=== PATIENT | male | born 1960 | race Caucasian/White ===

== ENCOUNTER 2021-03-08 20:22 | Inpatient (IN) ==
--- NOTE | 2021-03-08 20:35 | Emergency Department Note ---
Impression & Plan Acidosis, lactic, Acute dehydration, Weakness ED Provider Note NAME: NIKKI CHRISTENSEN AGE: 60 SEX: M : 1960 ARRIVES VIA: Walk-In INFORMANT: Patient, ED PROVIDER(S): Julio César Osborn MD Chief Complaint: Lower lethargy, confusion, weakness HPI: Patient does present from a longterm after recently being discharged from [facility] earlier today for hyponatremia and weakness. The caregiver at bedside states that there is an acute change in the patient within the last week. No reported falls or trauma. Patient reportedly was discharged as they had a need for beds reportedly per the patient's caregiver at bedside. Patient has been listing to the right and the caregivers noticed may be a slight droop of his right eyelid. Patient has had increasing weakness and inability to care for self. No reported cough or vomiting. Patient has had decreased p.o. intake. No reported dysuria or hematuria. Patient reportedly does not take blood thinning medications. Patient does live in a longterm as the patient has Tourette's. ROS: See HPI for pertinent positives and negatives. A total of 10 systems were reviewed and otherwise negative. Past medical history: See below Surgical history: See below Social history: See below Physical Exam: GENERAL: Ill in appearance, emaciated. Wearing a mask. EYE EXAM: Normal conjunctiva. PERRL, no anisocoria and EOM's grossly intact w/o pain. Chest: Pes excavatum noted. NECK: Supple, no nuchal rigidity, no adenopathy, non-tender. No signs of meningismus. LUNGS: Clear to auscultation. Normal chest wall mechanics. HEART: Tachycardic and regular, no MRG. ABDOMEN: Abdomen soft, non-tender, normo-active bowel sounds, no masses, no rebound or guarding. BACK: No CVA TTP. SKIN: Slight abrasion to the right upper extremity. UPPER EXTREMITIES: Upper extremities are grossly normal. LOWER EXTREMITIES: Grossly normal, no edema. NEURO EXAM: Awake and alert does follow basic commands., cranial nerves II-XII grossly intact, normal speech, diffuse weakness of all 4 extremities, denies sensory deficits. Differential diagnoses: Infection, dehydration, metabolic abnormality, hypo/hyperglycemia, electrolyte disturbance, anemia, hypoxia, cardiac sources, i ntracerebral event, toxicologic, neurologic, as well as other pathologies. Course: Patient was seen and evaluated the bedside. Full history physical exam was performed. EKG interpreted by me Sinus tachycardia, rate of 123, normal intervals, no obvious ST changes. Imaging Studies: See Below Cardiac monitoring: An order was placed for continuous cardiac monitoring. The monitor shows a rate of 125 with tachycardic and regular rhythm. MDM: Patient was seen due to concern for weakness. The patient had blood work completed. Patient was started on empiric antibiotics cefepime. Patient had a white count of 11 with normal H&H and platelet count. Kidney function grossly unremarkable. Lactate of 8. The patient does have mild elevations in AST alk phos. Patient troponin is not detectable. Procalcitonin is not elevated. Urinalysis does not show evidence of blood or infection. Covid negative. CT of the head is negative. Chest x-ray is clear. Patient did receive IV fluids and a repeat check of the lactate is 2. Do not believe the patient has ischemic bowel. Nonsurgical abdomen. I did speak to the on-call hospitalist and the patient was admitted to the medicine service. Critical Care: I have personally spent 36 minutes of critical care time in direct management of this patient. This includes bedside care, interpretation of diagnostic studies, and testing, discussion with consultants, patient, and family members, and other require inpatient management activities. This 36 minutes is in excess of all separately billable procedures. Past Med/Surg History Social History Smoking Status: Never smoker Hx Alcohol Use: No marital status: Single Current Living Situation: Personal Care Facility current occupational status: disabled Feels Safe at Home: Yes Dental Care, Regularly: Yes Allergies Allergies Allergy/AdvReac Type Severity Reaction Status Date / Time aspirin Allergy Unknown ON Verified 03/08/21 21:47 [place] [facility] hepatitis B virus vaccine Allergy Unknown ON Verified 03/08/21 21:47 [place] [facility] peanut Allergy Unknown ON Verified 03/08/21 21:47 [place] [facility] peas Allergy Unknown ON Verified 03/08/21 21:47 [place] [facility] strawberry Allergy Unknown ON Verified 03/08/21 21:47 [place] [facility] tree nut Allergy Unknown ON Verified 03/08/21 21:47 [place] [facility] watermelon Allergy Unknown ON Verified 03/08/21 21:47 [facility] MED LIST Home Meds Home Medications Medication Instructions Recorded Confirmed albuterol sulfate 90 mcg/actuation 2 puffs INH Q6H PRN 01/04/19 03/08/21 aerosol inhaler (Ventolin HFA) clotrimazole 1 % topical cream 1 appln TOP BID PRN 01/04/19 03/08/21 (Jock Itch (clotrimazole)) epinephrine 0.3 mg/0.3 mL 0.3 mg IM DIRECTED PRN 01/04/19 03/08/21 injection, auto-injector montelukast 10 mg tablet 10 mg PO QAM 01/04/19 03/08/21 pimozide 2 mg tablet 2 mg PO BID tab 01/04/19 03/08/21 sennosides 8.6 mg tablet (Syl-roxie) 8.6 mg PO QAM 01/04/19 03/08/21 acetaminophen 500 mg tablet 500 mg PO Q4H PRN 03/08/21 03/08/21 aluminum-mag hydroxide-simethicone 10 ml PO PCHS PRN 03/08/21 03/08/21 200 mg-200 mg-20 mg/5 mL oral susp (Antacid) chlorpheniramine-acetaminophen 2 2 tab PO Q4H PRN 03/08/21 03/08/21 mg-325 mg tablet (Coricidin HBP Cold and Flu) dextromethorphan-guaifenesin 10 10 ml PO Q4H PRN 03/08/21 03/08/21 mg-100 mg/5 mL oral syrup ibuprofen 200 mg tablet 200 mg PO Q4H PRN 03/08/21 03/08/21 loperamide 2 mg tablet 2 mg PO DIRECTED PRN MDD 4 03/08/21 03/08/21 TABS/DAY--NO MORE THAN 2 DAY nitrofurantoin macrocrystal 100 mg 100 mg PO QAM 03/08/21 03/08/21 capsule phenol-phenolate sodium mucosal 5 spray PO Q2H PRN 03/08/21 03/08/21 aerosol spray pimozide 1 mg tablet 1 mg PO BID 03/08/21 03/08/21 tamsulosin 0.4 mg capsule 0.4 mg PO HS 03/08/21 03/08/21 venlafaxine 150 mg 150 mg PO QAM 03/08/21 03/08/21 capsule,extended release 24 hr Previous Rx's Medication Instructions Recorded dutasteride 0.5 mg capsule 0.5 mg PO DAILY #90 cap 07/23/20 (Avodart) Results & Data (ED) Vital Signs Vital Signs - 24 hr 03/08/21 20:26 03/08/21 21:08 03/08/21 21:10 Temperature 36.8 C Temperature Source Temporal Artery Scan Pulse Rate 101 H 114 H Respiratory Rate 16 24 Respiratory Effort / Characteristics Non-Labored Blood Pressure 72/47 L 101/62 Blood Pressure Mean 55 75 Blood Pressure Position Sitting Pulse Oximetry 96 97 Oxygen Delivery Method Room Air Room Air Sepsis Recent Fever Within 48 Hours No Sepsis New/Unexplained Change in Mental Status No Sepsis Action Taken by Nursing No Action Required 03/08/21 21:26 03/08/21 22:00 03/08/21 22:30 Temperature Temperature Source Pulse Rate 110 H 108 H Respiratory Rate 20 24 Respiratory Effort / Characteristics Blood Pressure 116/69 111/62 Blood Pressure Mean 84 78 Blood Pressure Position Pulse Oximetry 97 94 93 Oxygen Delivery Method Room Air Sepsis Recent Fever Within 48 Hours Sepsis New/Unexplained Change in Mental Status Sepsis Action Taken by Nursing 03/08/21 23:00 Temperature Temperature Source Pulse Rate 104 H Respiratory Rate 22 Respiratory Effort / Characteristics Blood Pressure 113/67 Blood Pressure Mean 82 Blood Pressure Position Pulse Oximetry 94 Oxygen Delivery Method Sepsis Recent Fever Within 48 Hours Sepsis New/Unexplained Change in Mental Status Sepsis Action Taken by [facility] Medications Current Medication List: was personally reviewed by me Laboratory Data Attestation: I reviewed the patient's lab results. Result diagrams: 03/08/21 20:50 03/08/21 20:50 Lab Results 03/08/21 03/08/21 03/08/21 Range/Units 20:50 20:50 20:50 WBC 11.24 H (4.8-10.8) K/uL RBC 4.89 (4.7-6.1) M/uL Hgb 16.0 (14.0-18.0) g/dL Hct 47.0 (42-52) % MCV 96.1 (80-100) fL MCH 32.7 (25-34) pg MCHC 34.0 (32-36) g/dL RDW Std Deviation 50.9 H (36.4-46.3) fL RDW Coeff of Sujit 14.3 (11.5-14.5) % Plt Count 166 (130-400) K/uL MPV 10.0 (7.4-10.4) fL Immature Gran % (Auto) 0.2 % Neut % (Auto) 75.6 % Lymph % (Auto) 12.5 % [place] % (Auto) 9.9 % Eos % (Auto) 1.6 % Baso % (Auto) 0.2 % Neut # (Auto) 8.50 H (1.4-6.5) K/uL Lymph # (Auto) 1.41 (1.2-3.4) K/uL [place] # (Auto) 1.11 H (0.11-0.59) K/uL Eos # (Auto) 0.18 (0-0.5) K/uL Baso # (Auto) 0.02 (0-0.2) K/uL Immature Gran # (Auto) 0.02 (0.00-0.02) K/uL PT 11.6 (9.0-12.0) Seconds INR 1.2 H (0.9-1.1) APTT 25.6 (21.0-31.0) Seconds PTT Ratio 1.0 Sodium 141 (136-145) mmol/L Potassium 3.9 (3.5-5.1) mmol/L Chloride 107 (98-107) mmol/L Carbon Dioxide 22 (21-32) mmol/L Anion Gap 12.0 H (3-11) BUN 15 (7-18) mg/dl Creatinine 1.40 (0.6-1.4) mg/dl Est Cr Clr Drug Dosing 39.9 ml/min Est GFR ( Amer) 63.3 ml/min Est GFR (Non-Af Amer) 54.6 ml/min BUN/Creatinine Ratio 10.8 (10-20) Glucose 120 H (70-99) mg/dl POC Glucose (70-99) mg/dl Lactate (0.4-2.0) mmol/L Calcium 8.8 (8.5-10.1) mg/dl Magnesium 2.3 (1.8-2.4) mg/dl Total Bilirubin 1.3 H (0.2-1) mg/dl AST 73 H (15-37) U/L ALT 76 (12-78) U/L Alkaline Phosphatase 163 H (45-117) U/L Total Creatine Kinase 144 (39-308) U/L Troponin I < 0.015 (0-0.045) ng/ml Total Protein 7.4 (6.4-8.2) gm/dl Albumin 2.4 L (3.4-5.0) gm/dl Globulin 5.0 H (2.5-4.0) gm/dl Albumin/Globulin Ratio 0.5 L (0.9-2) Procalcitonin (0-0.5) ng/ml TSH 4.190 (0.300-4.500) uIu/ml Urine Color Urine Appearance (Clear) Urine pH (4.5-7.5) Ur Specific [place] (1.000-1.030) Urine Protein (Negative) Urine Glucose (UA) (Negative) Urine Ketones (Negative) Urine Blood (Negative) Urine Nitrite (Negative) Urine Bilirubin (Negative) Urine Urobilinogen (Negative) Ur Leukocyte Esterase (Negative) COVID-19 Eval Order SARS-CoV-2 (PCR) (Negative) 03/08/21 03/08/21 03/08/21 Range/Units 20:50 20:50 20:50 WBC (4.8-10.8) K/uL RBC (4.7-6.1) M/uL Hgb (14.0-18.0) g/dL Hct (42-52) % MCV (80-100) fL MCH (25-34) pg MCHC (32-36) g/dL RDW Std Deviation (36.4-46.3) fL RDW Coeff of Sujit (11.5-14.5) % Plt Count (130-400) K/uL MPV (7.4-10.4) fL Immature Gran % (Auto) % Neut % (Auto) % Lymph % (Auto) % [place] % (Auto) % Eos % (Auto) % Baso % (Auto) % Neut # (Auto) (1.4-6.5) K/uL Lymph # (Auto) (1.2-3.4) K/uL [place] # (Auto) (0.11-0.59) K/uL Eos # (Auto) (0-0.5) K/uL Baso # (Auto) (0-0.2) K/uL Immature Gran # (Auto) (0.00-0.02) K/uL PT (9.0-12.0) Seconds INR (0.9-1.1) APTT (21.0-31.0) Seconds PTT Ratio Sodium (136-145) mmol/L Potassium (3.5-5.1) mmol/L Chloride (98-107) mmol/L Carbon Dioxide (21-32) mmol/L Anion Gap (3-11) BUN (7-18) mg/dl Creatinine (0.6-1.4) mg/dl Est Cr Clr Drug Dosing ml/min Est GFR ( Amer) ml/min Est GFR (Non-Af Amer) ml/min BUN/Creatinine Ratio (10-20) Glucose (70-99) mg/dl POC Glucose (70-99) mg/dl Lactate 8.1 H* (0.4-2.0) mmol/L Calcium (8.5-10.1) mg/dl Magnesium (1.8-2.4) mg/dl Total Bilirubin (0.2-1) mg/dl AST (15-37) U/L ALT (12-78) U/L Alkaline Phosphatase (45-117) U/L Total Creatine Kinase (39-308) U/L Troponin I (0-0.045) ng/ml Total Protein (6.4-8.2) gm/dl Albumin (3.4-5.0) gm/dl Globulin (2.5-4.0) gm/dl Albumin/Globulin Ratio (0.9-2) Procalcitonin 0.36 (0-0.5) ng/ml TSH (0.300-4.500) uIu/ml Urine Color Urine Appearance (Clear) Urine pH (4.5-7.5) Ur Specific [place] (1.000-1.030) Urine Protein (Negative) Urine Glucose (UA) (Negative) Urine Ketones (Negative) Urine Blood (Negative) Urine Nitrite (Negative) Urine Bilirubin (Negative) Urine Urobilinogen (Negative) Ur Leukocyte Esterase (Negative) COVID-19 Eval Order Covid19 at [facility] SARS-CoV-2 (PCR) (Negative) 03/08/21 03/08/21 03/08/21 Range/Units 20:50 21:12 21:20 WBC (4.8-10.8) K/uL RBC (4.7-6.1) M/uL Hgb (14.0-18.0) g/dL Hct (42-52) % MCV (80-100) fL MCH (25-34) pg MCHC (32-36) g/dL RDW Std Deviation (36.4-46.3) fL RDW Coeff of Sujit (11.5-14.5) % Plt Count (130-400) K/uL MPV (7.4-10.4) fL Immature Gran % (Auto) % Neut % (Auto) % Lymph % (Auto) % [place] % (Auto) % Eos % (Auto) % Baso % (Auto) % Neut # (Auto) (1.4-6.5) K/uL Lymph # (Auto) (1.2-3.4) K/uL [place] # (Auto) (0.11-0.59) K/uL Eos # (Auto) (0-0.5) K/uL Baso # (Auto) (0-0.2) K/uL Immature Gran # (Auto) (0.00-0.02) K/uL PT (9.0-12.0) Seconds INR (0.9-1.1) APTT (21.0-31.0) Seconds PTT Ratio Sodium (136-145) mmol/L Potassium (3.5-5.1) mmol/L Chloride (98-107) mmol/L Carbon Dioxide (21-32) mmol/L Anion Gap (3-11) BUN (7-18) mg/dl Creatinine (0.6-1.4) mg/dl Est Cr Clr Drug Dosing ml/min Est GFR ( Amer) ml/min Est GFR (Non-Af Amer) ml/min BUN/Creatinine Ratio (10-20) Glucose (70-99) mg/dl POC Glucose 118 H (70-99) mg/dl Lactate (0.4-2.0) mmol/L Calcium (8.5-10.1) mg/dl Magnesium (1.8-2.4) mg/dl Total Bilirubin (0.2-1) mg/dl AST (15-37) U/L ALT (12-78) U/L Alkaline Phosphatase (45-117) U/L Total Creatine Kinase (39-308) U/L Troponin I (0-0.045) ng/ml Total Protein (6.4-8.2) gm/dl Albumin (3.4-5.0) gm/dl Globulin (2.5-4.0) gm/dl Albumin/Globulin Ratio (0.9-2) Procalcitonin (0-0.5) ng/ml TSH (0.300-4.500) uIu/ml Urine Color [place] Urine Appearance Clear (Clear) Urine pH 7.0 (4.5-7.5) Ur Specific [place] 1.009 (1.000-1.030) Urine Protein Negative (Negative) Urine Glucose (UA) Negative (Negative) Urine Ketones Negative (Negative) Urine Blood Negative (Negative) Urine Nitrite Negative (Negative) Urine Bilirubin Negative (Negative) Urine Urobilinogen Negative (Negative) Ur Leukocyte Esterase Negative (Negative) COVID-19 Eval Order SARS-CoV-2 (PCR) NEGATIVE (Negative) 03/08/21 Range/Units 23:03 WBC (4.8-10.8) K/uL RBC (4.7-6.1) M/uL Hgb (14.0-18.0) g/dL Hct (42-52) % MCV (80-100) fL MCH (25-34) pg MCHC (32-36) g/dL RDW Std Deviation (36.4-46.3) fL RDW Coeff of Sujit (11.5-14.5) % Plt Count (130-400) K/uL MPV (7.4-10.4) fL Immature Gran % (Auto) % Neut % (Auto) % Lymph % (Auto) % [place] % (Auto) % Eos % (Auto) % Baso % (Auto) % Neut # (Auto) (1.4-6.5) K/uL Lymph # (Auto) (1.2-3.4) K/uL [place] # (Auto) (0.11-0.59) K/uL Eos # (Auto) (0-0.5) K/uL Baso # (Auto) (0-0.2) K/uL Immature Gran # (Auto) (0.00-0.02) K/uL PT (9.0-12.0) Seconds INR (0.9-1.1) APTT (21.0-31.0) Seconds PTT Ratio Sodium (136-145) mmol/L Potassium (3.5-5.1) mmol/L Chloride (98-107) mmol/L Carbon Dioxide (21-32) mmol/L Anion Gap (3-11) BUN (7-18) mg/dl Creatinine (0.6-1.4) mg/dl Est Cr Clr Drug Dosing ml/min Est GFR ( Amer) ml/min Est GFR (Non-Af Amer) ml/min BUN/Creatinine Ratio (10-20) Glucose (70-99) mg/dl POC Glucose (70-99) mg/dl Lactate 2.2 H* (0.4-2.0) mmol/L Calcium (8.5-10.1) mg/dl Magnesium (1.8-2.4) mg/dl Total Bilirubin (0.2-1) mg/dl AST (15-37) U/L ALT (12-78) U/L Alkaline Phosphatase (45-117) U/L Total Creatine Kinase (39-308) U/L Troponin I (0-0.045) ng/ml Total Protein (6.4-8.2) gm/dl Albumin (3.4-5.0) gm/dl Globulin (2.5-4.0) gm/dl Albumin/Globulin Ratio (0.9-2) Procalcitonin (0-0.5) ng/ml TSH (0.300-4.500) uIu/ml Urine Color Urine Appearance (Clear) Urine pH (4.5-7.5) Ur Specific [place] (1.000-1.030) Urine Protein (Negative) Urine Glucose (UA) (Negative) Urine Ketones (Negative) Urine Blood (Negative) Urine Nitrite (Negative) Urine Bilirubin (Negative) Urine Urobilinogen (Negative) Ur Leukocyte Esterase (Negative) COVID-19 Eval Order SARS-CoV-2 (PCR) (Negative) Administered Medications Lactated Ringer's (Lr) 1,000 mls @ 125 mls/hr IV .Q8H TRACE Stop: 03/10/21 01:00 Last Admin: 03/09/21 01:12 Dose: 125 mls/hr Documented by: [id number] Miscellaneous (Avodart~Order Awaiting Action) 1 ea N/A QS TRACE Stop: 04/08/21 01:04 Last Admin: 03/09/21 01:12 Dose: Not Given Documented by: [id number] Miscellaneous (Pimozide~Order Awaiting Action) 1 ea N/A QS TRACE Stop: 04/08/21 01:04 Last Admin: 03/09/21 01:13 Dose: Not Given Documented by: [id number] Miscellaneous (Pimozide~Order Awaiting Action) 1 ea N/A QS TRACE Stop: 04/08/21 01:04 Last Admin: 03/09/21 01:13 Dose: Not Given Documented by: [id number] Discontinued Medications Sodium Chloride (Nss 1000ml) 1,000 mls @ 999 mls/hr IV .Q1H1M TRACE Stop: 03/08/21 21:43 Last Infusion: 03/08/21 22:08 Dose: 0 mls/hr Documented by: [id number] Admin: 03/08/21 21:07 Dose: 999 mls/hr Documented by: [id number] Sodium Chloride (Nss 1000ml) 1,000 mls @ 999 mls/hr IV .Q1H1M TRACE Stop: 03/08/21 22:45 Last Infusion: 03/08/21 22:16 Dose: 0 mls/hr Documented by: [id number] Admin: 03/08/21 21:15 Dose: 999 mls/hr Documented by: [id number] Cefepime HCl (Maxipime) 2,000 mg in 20 mls @ 5 mls/min IV NOW STA; Protocol Stop: 03/08/21 20:45 Last Admin: 03/08/21 21:24 Dose: 5 mls/min Documented by: [id number] Imaging Data Radiologist's Impression: Chest X-Ray 03/08/21 20:42 SINGLE VIEW CHEST CLINICAL HISTORY: Sepsis. FINDINGS: An AP, portable, upright chest radiograph is obtained. No prior studies are available for comparison at the time of dictation. The examination is degraded by portable technique and patient rotation. The heart is top normal for projection. The pulmonary vasculature is noncongested. There is bibasilar scarring/atelectasis. No airspace consolidation or large pleural effusion is identified. No pneumothorax is seen. The bony thorax is grossly intact. Mild scoliosis is noted in the thoracic spine. IMPRESSION: No acute cardiopulmonary abnormality. ACT 112: Negative or not required by law. Electronically signed by: Frank Rodas M.D. 03/08/2021 10:[address] 03/08/21 21:02 CT SCAN OF THE BRAIN WITHOUT IV CONTRAST CLINICAL HISTORY: Change in mental status. Generalized weakness. COMPARISON STUDY: No priors. TECHNIQUE: Unenhanced axial CT scan of the brain is performed from the vertex to the skull base. A dose lowering technique was utilized adhering to the principles of ALARA. The examination is modestly degraded by motion artifact. CT DOSE: 884.08 mGy.cm FINDINGS: Brain parenchyma: There is mild involutional change. There is no hemorrhage, mass effect, or evidence of acute territorial ischemia by CT criteria. Pereyra- white matter differentiation is preserved. No extra-axial fluid collection is seen. Ventricles, sulci, cisterns: Normal in configuration. Intracranial vasculature: There is mild atherosclerotic calcification of the ca vernous carotid arteries. Calvarium: Unremarkable. Sinuses and mastoids: The visualized paranasal sinuses are clear. The mastoid air cells are well pneumatized. Orbits: The bony orbits are grossly intact. IMPRESSION: There is no hemorrhage, mass effect, or evidence of acute territo rial ischemia by CT criteria. ACT 112: Negative or not required by law. Electronically signed by: Frank Roads M.D. 03/08/2021 9:39 PM Discharge Plan Visit Data Chief Complaint: Altered Mental Status Stated Complaint: altered mental status, leg pain ED Provider: Julio César Osborn Discharge Problem: Acidosis, lactic, Acute dehydration, Weakness Patient Disposition: Admitted As Inpatient Discharge Instructions Interventions: ED Discharge Assessment Last Done: 03/09/21 00:36
[2021-03-08] MEDS ORDERED: CEFEPIME 2,000 MG/20 ML VIAL IV STA (20:42)
[2021-03-08] MEDS ORDERED: SODIUM CHLORIDE 0.9% 1000ML 1,000 ML IV SCH ×2 (20:45→21:45)
[2021-03-08 21:05] LABS: Basophils # (auto) 0.02 K/uL (0-0.2); Basophils % (auto) 0.2 %; Eosinophils # (auto) 0.18 K/uL (0-0.5); Eosinophils % (auto) 1.6 %; Immature Granulocytes # (auto) 0.02 K/uL (0.00-0.02); Immature Granulocytes % (auto) 0.2 %; Lymphocytes # (auto) 1.41 K/uL (1.2-3.4); Lymphocytes % (auto) 12.5 %; Mean Corpuscular Hemoglobin 32.7 pg (25-34); Mean Corpuscular Volume 96.1 fL (80-100); Monocytes # (auto) 1.11 K/uL (0.11-0.59); Monocytes % (auto) 9.9 %; Neutrophils % (auto) 75.6 %; Platelet Count 166 K/uL (130-400); RDW Coefficient of Variation 14.3 % (11.5-14.5); RDW Standard Deviation 50.9 fL (36.4-46.3); Red Blood Count 4.89 M/uL (4.7-6.1); White Blood Count 11.24 K/uL (4.8-10.8)
[2021-03-08 21:16] LABS: INR 1.2 (0.9-1.1); Partial Thromboplastin Time 25.6 Seconds (21.0-31.0); Prothrombin Time 11.6 Seconds (9.0-12.0)
[2021-03-08 21:27] LABS: Appearance Urine Clear (Clear); Bilirubin Urine Negative (Negative); Blood Urine Negative (Negative); Color Urine Orange; Glucose Urine UA Negative (Negative); Ketones Urine Negative (Negative); Leukocyte Esterase Urine Negative (Negative); Nitrite Urine Negative (Negative); Protein Urine Negative (Negative); Specific Gravity Urine 1.009 (1.000-1.030); Urobilinogen Urine Negative (Negative)
[2021-03-08 21:33] LABS: Alanine Aminotransferase 76 U/L (12-78); Albumin Level 2.4 gm/dl (3.4-5.0); Aspartate Aminotransferase 73 U/L (15-37); BUN Creatinine Ratio 10.8 (10-20); Blood Urea Nitrogen 15 mg/dl (7-18); Calcium 8.8 mg/dl (8.5-10.1); Carbon Dioxide 22 mmol/L (21-32); Chloride 107 mmol/L (98-107); Creatinine Clr Calc Pharmacy 39.9 ml/min; Est GFR (African American) 63.3 ml/min; Est GFR (Non-African American) 54.6 ml/min; Glucose 120 mg/dl (70-99); Magnesium 2.3 mg/dl (1.8-2.4); Potassium 3.9 mmol/L (3.5-5.1); Sodium 141 mmol/L (136-145)
[2021-03-08 21:38] LABS: Albumin Globulin Ratio 0.5 (0.9-2); Alkaline Phosphatase 163 U/L (45-117); Bilirubin,Total 1.3 mg/dl (0.2-1); Total Protein 7.4 gm/dl (6.4-8.2); Troponin I < 0.015 ng/ml (0-0.045)
--- NOTE | 2021-03-08 21:41 | CT Scan Report ---
CT SCAN OF THE BRAIN WITHOUT IV CONTRAST CLINICAL HISTORY: Change in mental status. Generalized weakness. COMPARISON STUDY: No priors. TECHNIQUE: Unenhanced axial CT scan of the brain is performed from the vertex to the skull base. A d ose lowering technique was utilized adhering to the principles of ALARA. The examination is modestly degraded by motion artifact. CT DOSE: 884.08 mGy.cm FINDINGS: Brain parenchyma: There is mild involutional change. There is no hemorrhage, mass effect, or evidence of acute territorial ischemia by CT criteria. Pereyra-white matter differentiation is preserved. No ext ra-axial fluid collection is seen. Ventricles, sulci, cisterns: Normal in configuration. Intracranial vasculature: There is mild atherosclerotic calcification of the cavernous carotid arteri es. Calvarium: Unremarkable. Sinuses and mastoids: The visualized paranasal sinuses are clear. The mastoid air cells are well pneu matized. Orbits: The bony orbits are grossly intact. IMPRESSION: There is no hemorrhage, mass effect, or evidence of acute territorial ischemia by CT phani jeronimo. ACT 112: Negative or not required by law. Electronically signed by: Frank Rodas M.D. 03/08/2021 9:39 PM
--- NOTE | 2021-03-08 22:45 | XRay Report ---
SINGLE VIEW CHEST CLINICAL HISTORY: Sepsis. FINDINGS: An AP, portable, upright chest radiograph is obtained. No prior studies are available for c omparison at the time of dictation. The examination is degraded by portable technique and patient rot ation. The heart is top normal for projection. The pulmonary vasculature is noncongested. There is b ibasilar scarring/atelectasis. No airspace consolidation or large pleural effusion is identified. No pneumothorax is seen. The bony thorax is grossly intact. Mild scoliosis is noted in the thoracic spin e. IMPRESSION: No acute cardiopulmonary abnormality. ACT 112: Negative or not required by law. Electronically signed by: Frank Rodas M.D. 03/08/2021 10:43 PM
--- NOTE | 2021-03-08 23:27 | History & Physical Report ---
Date of Service March 08, 2021 Assessment & Plan (1) Acidosis, lactic: Plan: Elevated lactate on arrival of 8.1 which improved with IVF. Repeat 2.2. Possibly secondary to dehydration, patient hypotensive on arrival which has resolved with IVF x 2L -Continue IVF, LR at 125mL/hr x 3 liters -Follow cultures sent by ER. No obvious source of infection at this time. UA is unremarkable. Skin intact. CXR with no infiltrates -Encourage PO intake -Consider dietary consultation (2) Acute dehydration: Plan: As above. IVF and electrolyte repletion -Encourage PO intake -Assistance with meals as needed (3) Weakness: Plan: Patient appear to have generalized weakness. No focal findings on my exam, although limited secondary to poor patient participation. -Treatment of dehydration as above -Consider MRI brain - staff notes that he had a slight right eyelid droop (4) Abnormal LFTs: Plan: Patient with mild obstructive pattern on LFTs with QJ=043 and Tbili=1.3. No RUQ tenderness -Check RUQ US -Repeat LFTs in AM (5) Tourettes syndrome: Plan: Chronic -Continue Pimozide (6) Debility: Plan: Patient requires assistance with ADLs -Fall precautions -Aspiration precautions -Turn q 2 horus -Oral hygiene q shift -PT/OT evaluation Plan: F/E/N - LR at 125mL/hr, electrolytes WNL, Jj=323, Regular diet, pureed with nectar thick liquids and aspiration precautions Ppx - Lovenox 30 Code - Full per discussion with [facility] Dis[facility] - Admit to medical History of Present Illness Chief Complaint: weakness, failure to thrive Primary Care Provider: Jared Tripp is a 60yo male presenting from his usp with dehydration and failure to thrive. History obtained through chart review, discussion with ER staff and caregiver at bedside. Patient has been deteriorating over the last several weeks. He has not been eating or drinking much. He has become more weak, requires 2-4 person assist to get him out of bed. Seen recently admitted to [facility] for hypernatremia as well as dehydration and weakness. Treated with IVF and sent home. Caregiver reports patient has been leaning to the right, possibly had a right eye droop Is largely non-communicative but is able to answer "yes" or "no" Has an occasional cough at night otherwise no report of fever, chills, malaise, chest pain, palpitations, abdominal pain, nausea, vomiting diarrhea or constipation. Received Flu shot and Covid booster appx 2 weeks ago Hypotensive upon arrival with triage BP of 72/47, HR of 108. He was administered IVF x 2 liters with improvement in hemodynamics. BP upon my encounter 111/62 ER Course: Cefepime 2gm, NSS Allergies Allergy/AdvReac Type Severity Reaction Status Date / Time aspirin Allergy Unknown ON Verified 03/08/21 21:47 [place] [facility] hepatitis B virus vaccine Allergy Unknown ON Verified 03/08/21 21:47 [place] [facility] peanut Allergy Unknown ON Verified 03/08/21 21:47 [place] [facility] peas Allergy Unknown ON Verified 03/08/21 21:47 [place] [facility] strawberry Allergy Unknown ON Verified 03/08/21 21:47 [place] [facility] tree nut Allergy Unknown ON Verified 03/08/21 21:47 [place] [facility] watermelon Allergy Unknown ON Verified 03/08/21 21:47 [place] [facility] Home Medications Medication Instructions Recorded Confirmed Type albuterol sulfate 90 mcg/actuation 2 puffs INH Q6H PRN 01/04/19 03/08/21 History aerosol inhaler (Ventolin HFA) clotrimazole 1 % topical cream 1 appln TOP BID PRN 01/04/19 03/08/21 History (Jock Itch (clotrimazole)) epinephrine 0.3 mg/0.3 mL 0.3 mg IM DIRECTED PRN 01/04/19 03/08/21 History injection, auto-injector montelukast 10 mg tablet 10 mg PO QAM 01/04/19 03/08/21 History pimozide 2 mg tablet 2 mg PO BID tab 01/04/19 03/08/21 History sennosides 8.6 mg tablet (Syl-roxie) 8.6 mg PO QAM 01/04/19 03/08/21 History dutasteride 0.5 mg capsule 0.5 mg PO DAILY #90 cap 07/23/20 03/08/21 Rx (Avodart) acetaminophen 500 mg tablet 500 mg PO Q4H PRN 03/08/21 03/08/21 History aluminum-mag hydroxide-simethicone 10 ml PO PCHS PRN 03/08/21 03/08/21 History 200 mg-200 mg-20 mg/5 mL oral susp (Antacid) chlorpheniramine-acetaminophen 2 2 tab PO Q4H PRN 03/08/21 03/08/21 History mg-325 mg tablet (Coricidin HBP Cold and Flu) dextromethorphan-guaifenesin 10 10 ml PO Q4H PRN 03/08/21 03/08/21 History mg-100 mg/5 mL oral syrup ibuprofen 200 mg tablet 200 mg PO Q4H PRN 03/08/21 03/08/21 History loperamide 2 mg tablet 2 mg PO DIRECTED PRN MDD 4 03/08/21 03/08/21 History TABS/DAY--NO MORE THAN 2 DAY nitrofurantoin macrocrystal 100 mg 100 mg PO QAM 03/08/21 03/08/21 History capsule phenol-phenolate sodium mucosal 5 spray PO Q2H PRN 03/08/21 03/08/21 History aerosol spray pimozide 1 mg tablet 1 mg PO BID 03/08/21 03/08/21 History tamsulosin 0.4 mg capsule 0.4 mg PO HS 03/08/21 03/08/21 History venlafaxine 150 mg 150 mg PO QAM 03/08/21 03/08/21 History capsule,extended release 24 hr Past Med/Surg History Social History Smoking Status: Never smoker Hx Alcohol Use: No marital status: Single Current Living Situation: Personal Care Facility current occupational status: disabled Feels Safe at Home: Yes Dental Care, Regularly: Yes Review of Systems Review of Systems: Unobtainable due to cognitive status Physical Exam Physical Exam: General: chronically ill appearing male patient, NAD, able to answer yes or no questions and follow some commands Skin: warm, dry, intact, scattered bruising - right shoulder, right forearm HEENT: NC/AT, PERRL, EOMI, anicteric sclera, conjunctiva without injection, external ear normal to inspection and nontender, nares patent, DRY mucus membranes, dentition intact, no oropharyngeal lesions, neck supple, trachea midline, no LAD, no thyromegaly, no JVD Heart: +S1/S2, regular, tachycardic, 3/6 ALFREDO across precordium, no rubs/gallops, pectus carinatum Lungs: equal air entry bilaterally, no rales/rhonchi/wheezes Abd: +BS, soft, NT/ND, no masses/organomegaly/ascites Ext: warm, 2+ pulses in UE/LE bilaterally, no clubbing/cyanosis or edema Neuro: patient opens eyes to name, moves all extremities with generalized weakness, no focal findings Results & Data Results & Data ([facility]) Vital Signs (Past 12 Hours) Vital Signs Temp Pulse Resp BP Pulse Ox 03/08/21 23:00 104 H 22 113/67 94 03/08/21 22:30 108 H 24 111/62 93 03/08/21 22:00 110 H 20 116/69 94 03/08/21 21:26 97 03/08/21 21:10 114 H 24 101/62 97 03/08/21 20:26 36.8 C 101 H 16 72/47 L 96 Laboratory Results Laboratory Results WBC 11.24 K/uL (4.8-10.8) H 03/08/21 20:50 RBC 4.89 M/uL (4.7-6.1) 03/08/21 20:50 Hgb 16.0 g/dL (14.0-18.0) 03/08/21 20:50 Hct 47.0 % (42-52) 03/08/21 20:50 MCV 96.1 fL (80-100) 03/08/21 20:50 MCH 32.7 pg (25-34) 03/08/21 20:50 MCHC 34.0 g/dL (32-36) 03/08/21 20:50 RDW Std Deviation 50.9 fL (36.4-46.3) H 03/08/21 20:50 RDW Coeff of Sujit 14.3 % (11.5-14.5) 03/08/21 20:50 Plt Count 166 K/uL (130-400) 03/08/21 20:50 MPV 10.0 fL (7.4-10.4) 03/08/21 20:50 Immature Gran % (Auto) 0.2 % 03/08/21 20:50 Neut % (Auto) 75.6 % 03/08/21 20:50 Lymph % (Auto) 12.5 % 03/08/21 20:50 [place] % (Auto) 9.9 % 03/08/21 20:50 Eos % (Auto) 1.6 % 03/08/21 20:50 Baso % (Auto) 0.2 % 03/08/21 20:50 Neut # (Auto) 8.50 K/uL (1.4-6.5) H 03/08/21 20:50 Lymph # (Auto) 1.41 K/uL (1.2-3.4) 03/08/21 20:50 [place] # (Auto) 1.11 K/uL (0.11-0.59) H 03/08/21 20:50 Eos # (Auto) 0.18 K/uL (0-0.5) 03/08/21 20:50 Baso # (Auto) 0.02 K/uL (0-0.2) 03/08/21 20:50 Immature Gran # (Auto) 0.02 K/uL (0.00-0.02) 03/08/21 20:50 PT 11.6 Seconds (9.0-12.0) 03/08/21 20:50 INR 1.2 (0.9-1.1) H 03/08/21 20:50 APTT 25.6 Seconds (21.0-31.0) 03/08/21 20:50 PTT Ratio 1.0 03/08/21 20:50 Sodium 141 mmol/L (136-145) 03/08/21 20:50 Potassium 3.9 mmol/L (3.5-5.1) 03/08/21 20:50 Chloride 107 mmol/L (98-107) 03/08/21 20:50 Carbon Dioxide 22 mmol/L (21-32) 03/08/21 20:50 Anion Gap 12.0 (3-11) H 03/08/21 20:50 BUN 15 mg/dl (7-18) 03/08/21 20:50 Creatinine 1.40 mg/dl (0.6-1.4) 03/08/21 20:50 Est Cr Clr Drug Dosing 39.9 ml/min 03/08/21 20:50 Est GFR ( Amer) 63.3 ml/min 03/08/21 20:50 Est GFR (Non-Af Amer) 54.6 ml/min 03/08/21 20:50 BUN/Creatinine Ratio 10.8 (10-20) 03/08/21 20:50 Glucose 120 mg/dl (70-99) H 03/08/21 20:50 POC Glucose 118 mg/dl (70-99) H 03/08/21 21:12 Lactate 2.2 mmol/L (0.4-2.0) H* 03/08/21 23:03 Calcium 8.8 mg/dl (8.5-10.1) 03/08/21 20:50 Magnesium 2.3 mg/dl (1.8-2.4) 03/08/21 20:50 Total Bilirubin 1.3 mg/dl (0.2-1) H 03/08/21 20:50 AST 73 U/L (15-37) H 03/08/21 20:50 ALT 76 U/L (12-78) 03/08/21 20:50 Alkaline Phosphatase 163 U/L (45-117) H 03/08/21 20:50 Total Creatine Kinase 144 U/L (39-308) 03/08/21 20:50 Troponin I < 0.015 ng/ml (0-0.045) 03/08/21 20:50 Total Protein 7.4 gm/dl (6.4-8.2) 03/08/21 20:50 Albumin 2.4 gm/dl (3.4-5.0) L 03/08/21 20:50 Globulin 5.0 gm/dl (2.5-4.0) H 03/08/21 20:50 Albumin/Globulin Ratio 0.5 (0.9-2) L 03/08/21 20:50 Procalcitonin 0.36 ng/ml (0-0.5) 03/08/21 20:50 TSH 4.190 uIu/ml (0.300-4.500) 03/08/21 20:50 Urine Color [place] 03/08/21 21:20 Urine Appearance Clear (Clear) 03/08/21 21:20 Urine pH 7.0 (4.5-7.5) 03/08/21 21:20 Ur Specific Hawks 1.009 (1.000-1.030) 03/08/21 21:20 Urine Protein Negative (Negative) 03/08/21 21:20 Urine Glucose (UA) Negative (Negative) 03/08/21 21:20 Urine Ketones Negative (Negative) 03/08/21 21:20 Urine Blood Negative (Negative) 03/08/21 21:20 Urine Nitrite Negative (Negative) 03/08/21 21:20 Urine Bilirubin Negative (Negative) 03/08/21 21:20 Urine Urobilinogen Negative (Negative) 03/08/21 21:20 Ur Leukocyte Esterase Negative (Negative) 03/08/21 21:20 COVID-19 Eval Order Covid19 at [facility] 03/08/21 20:50 SARS-CoV-2 (PCR) NEGATIVE (Negative) 03/08/21 20:50 Impressions Chest X-Ray 03/08/21 20:42 SINGLE VIEW CHEST CLINICAL HISTORY: Sepsis. FINDINGS: An AP, portable, upright chest radiograph is obtained. No prior studies are available for comparison at the time of dictation. The examination is degraded by portable technique and patient rotation. The heart is top normal for projection. The pulmonary vasculature is noncongested. There is bibasilar scarring/atelectasis. No airspace consolidation or large pleural effusion is identified. No pneumothorax is seen. The bony thorax is grossly intact. Mild scoliosis is noted in the thoracic spine. IMPRESSION: No acute cardiopulmonary abnormality. ACT 112: Negative or not required by law. Electronically signed by: Frank Rodas M.D. 03/08/2021 10:[address] 03/08/21 21:02 CT SCAN OF THE BRAIN WITHOUT IV CONTRAST CLINICAL HISTORY: Change in mental status. Generalized weakness. COMPARISON STUDY: No priors. TECHNIQUE: Unenhanced axial CT scan of the brain is performed from the vertex to the skull base. A dose lowering technique was utilized adhering to the principles of ALARA. The examination is modestly degraded by motion artifact. CT DOSE: 884.08 mGy.cm FINDINGS: Brain parenchyma: There is mild involutional change. There is no hemorrhage, mass effect, or evidence of acute territorial ischemia by CT criteria. Pereyra- white matter differentiation is preserved. No extra-axial fluid collection is seen. Ventricles, sulci, cisterns: Normal in configuration. Intracranial vasculature: There is mild atherosclerotic calcification of the cavernous carotid arteries. Calvarium: Unremarkable. Sinuses and mastoids: The visualized paranasal sinuses are clear. The mastoid air cells are well pneumatized. Orbits: The bony orbits are grossly intact. IMPRESSION: There is no hemorrhage, mass effect, or evidence of acute territorial ischemia by CT criteria. ACT 112: Negative or not required by law. Electronically signed by: Frank Rodas M.D. 03/08/2021 9:39 PM PG Care Time/CCT Total # of Minutes Spent Total Time Spent with Patient: Total time spent is greater than 50% in coordination of care (as documented) at patient's floor/unit and/or counseling patient: Coding Level of Care Code 66704 Initial Inpt Care Lvl 3 Diagnoses Acidosis, lactic E87.2 Acute dehydration E86.0 Weakness R53.1 Abnormal LFTs R94.5 Tourettes syndrome F95.2 Debility R53.81
[2021-03-09] MEDS ORDERED: ONDANSETRON INJ 2 MG/ML 2 ML VIAL IV PRN (01:01)
[2021-03-09] MEDS ORDERED: ALUMINUM/MAGNESIUM SUSP 30 ML UDC PO PRN (01:01)
[2021-03-09] MEDS ORDERED: ACETAMINOPHEN 325 MG TAB PO PRN (01:01)
[2021-03-09] MEDS ORDERED: ALBUTEROL HFA 8 GM INHALER INH PRN (01:01)
[2021-03-09] MEDS: AVODART~ORDER AWAITING ACTION SCH ×4 (01:12→22:05)
[2021-03-09] MEDS: LACTATED RINGER'S 1,000 ML IV SCH ×3 (01:12→17:14)
[2021-03-09 01:34] LABS: Creatine Kinase 144 U/L (39-308)
[2021-03-09 06:30] LABS: Basophils # (auto) 0.01 K/uL (0-0.2); Basophils % (auto) 0.1 %; Eosinophils # (auto) 0.14 K/uL (0-0.5); Eosinophils % (auto) 1.7 %; Hematocrit (blood only) 38.1 % (42-52); Hemoglobin 12.7 g/dL (14.0-18.0); Immature Granulocytes # (auto) 0.01 K/uL (0.00-0.02); Immature Granulocytes % (auto) 0.1 %; Lymphocytes # (auto) 1.32 K/uL (1.2-3.4); Lymphocytes % (auto) 16.5 %; Mean Corpuscular Hemoglobin 31.7 pg (25-34); Mean Corpuscular Hgb Conc 33.3 g/dL (32-36); Mean Platelet Volume 9.9 fL (7.4-10.4); Monocytes # (auto) 0.91 K/uL (0.11-0.59); Monocytes % (auto) 11.3 %; Neutrophils # (auto) 5.63 K/uL (1.4-6.5); Neutrophils % (auto) 70.3 %; Platelet Count 123 K/uL (130-400); RDW Coefficient of Variation 14.3 % (11.5-14.5); RDW Standard Deviation 49.8 fL (36.4-46.3); Red Blood Count 4.01 M/uL (4.7-6.1); White Blood Count 8.02 K/uL (4.8-10.8)
[2021-03-09 07:03] LABS: Albumin Level 1.7 gm/dl (3.4-5.0); BUN Creatinine Ratio 17.8 (10-20); Bilirubin Direct 0.3 mg/dl (0-0.2); Bilirubin,Total 0.9 mg/dl (0.2-1); Calcium 8.1 mg/dl (8.5-10.1); Creatinine Clr Calc Pharmacy 67.4 ml/min; Est GFR (African American) 111.6 ml/min; Est GFR (Non-African American) 96.3 ml/min; Potassium 4.1 mmol/L (3.5-5.1); Total Protein 5.4 gm/dl (6.4-8.2)
[2021-03-09] MEDS ORDERED: FLUARIX QUADRIVALENT 0.5 ML SYR IM ONE (08:00)
--- NOTE | 2021-03-09 08:11 | Ultrasound Report ---
US liver HISTORY: 60 years-old Male Elevated lactate, abnormal LFTs acutely elevated LFTs COMPARISON: None TECHNIQUE: Multiple real-time sonographic images of the abdominal right upper quadrant were obtained assessing grayscale appearance and color flow FINDINGS: Study is limited secondary to patient condition. The visualized pancreas is unremarkable. The liver i s within normal limits measuring up to 13 cm in length. Hepatopedal flow is noted within the portal v ein. The gallbladder demonstrates wall thickening measuring up to 4 mm. No shadowing cholelithiasis o r pericholecystic fluid. Sonographic Ricardo sign was unable to be assessed. Normal common bile duct, 4 mm. The imaged right kidney is unremarkable without hydronephrosis. IMPRESSION: 1. Nonspecific gallbladder wall thickening. No cholelithiasis or pericholecystic fluid identified. 2. No biliary ductal dilation. ACT 112: Negative or not required by law. The above report was generated using voice recognition software. It may contain grammatical, syntax o r spelling errors. Electronically signed by: Pelon Can M.D. 03/09/2021 8:09 AM
[2021-03-09] MEDS: ENOXAPARIN INJ 30 MG/0.3 ML SYR SQ SCH (09:17)
[2021-03-09] MEDS: SENNA 8.6 MG TAB PO SCH (09:18)
[2021-03-09] MEDS: VENLAFAXINE HCL XR 150 MG CAPXR PO SCH (09:18)
--- NOTE | 2021-03-09 09:53 | Electrocardiogram Report ---
Test Reason : Blood Pressure : / mmHG Vent. Rate : 123 BPM Atrial Rate : 123 BPM P-R Int : 130 ms QRS Dur : 082 ms QT Int : 342 ms P-R-T Axes : 054 097 059 degrees QTc Int : 489 ms Poor data quality, interpretation may be adversely affected Sinus tachycardia Left atrial enlargement Rightward axis Borderline ECG No previous ECGs available Confirmed by Neal Freeman [id number]) on 03/09/2021 9:52:40 AM Referred By: REFERRED SELF Confirmed By:Neal Freeman
--- NOTE | 2021-03-09 15:57 | Hospitalist Progress Note ---
Date of Service March 09, 2021 Assessment & Plan (1) Acidosis, lactic: (2) Acute dehydration: (3) Weakness: (4) Tourettes syndrome: (5) Debility: (6) Abnormal LFTs: Plan: Nadeem Tripp is a 60yo male with a PMHx of tourettes and debility presenting from his correction with dehydration and failure to thrive. 1. Acidosis, lactic: Elevated lactate on arrival of 8.1 which improved with IVF. Repeat 2.2. Possibly secondary to dehydration, patient hypotensive on arrival which resolved with IVF x 2L -Continue IVF, LR at 100mL/hr. -Follow cultures sent by ER. No obvious source of infection at this time. UA is unremarkable. Skin intact. CXR with no infiltrates -Encourage PO intake -Consider dietary consultation 2. Acute dehydration: As above. IVF and electrolyte repletion -Encourage PO intake -Assistance with meals as needed 3. Weakness: Patient appear to have generalized weakness at correction. No focal findings today. -Treatment of dehydration as above -CT head showed no hemorrhage or signs of ischemia. -Consider MRI brain - staff notes that he had a slight right eyelid droop 4. Abnormal LFTs: Patient with mild obstructive pattern on LFTs with PW=343 and Tbili=1.3. No RUQ tenderness -Labs resolving: AST 74, ALP 117, Tbili 0.9 -RUQ US: nonspecific gallbladder thickening, no cholelithiasis, no pericholecystic fluid, no duct dilation -Repeat LFTs in AM 5. Tourettes syndrome: Chronic -Continue Pimozide 6. Debility: Patient requires assistance with ADLs -Fall precautions -Aspiration precautions -Turn q2 hours -Oral hygiene q shift -PT/OT evaluation F/E/N - LR at 100mL/hr, regular diet, pureed with nectar thick liquids and aspiration precautions DVT Ppx - Lovenox 30 Code - Full per discussion with [facility] - Monitor, discharge possibly tomorrow or thursday. Admission and Anticipated Discharge Date Admission Date: March 08, 2021 Supervising Physician Co-Signing Physician Notes I also saw the patient with the resident physician and confirmed maciel portions of the history and physical examination. I agree with the impression and plan as noted in the resident documentation. 60-year-old male with mental disabilities presented from a correction with dehydration and failure to thrive. The patient is unable to provide a history to me during my exam but in reviewing the chart looks as if patient has been deteriorating over the past several weeks. He has not been eating or drinking. He has been coming progressively more weak, now required to to 4 person assist t o get out of bed. The patient was admitted to [facility] for hyperatremia, dehydration and weakness; he was treated with IV fluids and returned home. There are no records to review from this hospitalization. Exam 105/67, 77, 18, 36.7, 94% on room air He is in no acute distress. He will answer yes/no questions. He will not elaborate further. HEENT grossly unremarkable. Membranes perhaps slightly dry. Heart regular rate and rhythm Lungs clear to auscultation, though decreased in the bases due to effort. Data WBC 8.02, hemoglobin 12.7, platelet count 123 Sodium 143, potassium 4.1, BUN 15, creatinine 0.83 AST 74, ALT 60, alkaline phosphatase 117. Total protein 5.4, albumin 1.7 Initial lactate 8.1, repeat 2.2 CT of the head was unremarkable. Chest x-ray was unremarkable. Right upper quadrant ultrasound shows nonspecific gallbladder wall thickening. No cholelithiasis. Cholecystic fluid is identified. No biliary ductal dilatation was noted. Blood cultures are pending. Impression and plan Weakness/failure to thrive Protein calorie malnutrition with hypoalbuminemia Lactic acidosis, resolved Dehydration, resolved PT/OT consultations Decrease IV fluids but continue Repeat CBC and CMP in a.m. We will work to obtain records from prior hospitalization in outside facility His low protein and serum albumin are consistent with a chronic decline; hopefully old records will also help better define his chronic debilities. Subjective Laying comfortably in bed. Pleasant and alert but doesn't talk much. No acute complaints. Review of Systems Review of Systems: Unobtainable due to cognitive status Physical Exam Physical Exam: General: chronically ill appearing male patient, able to answer yes or no questions and follow some commands Skin: warm, dry, intact, scattered bruising - right shoulder, right forearm HEENT: NC/AT, PERRL, EOMI, anicteric sclera, conjunctiva without injection, external ear normal to inspection and nontender, nares patent, dry mucus membranes, dentition intact, no oropharyngeal lesions, neck supple, trachea midline, no LAD, no thyromegaly, no JVD Heart: +S1/S2, regular, tachycardic, 3/6 ALFREDO across precordium, no rubs/gallops, pectus carinatum Lungs: equal air entry bilaterally, no rales/rhonchi/wheezes Abd: +BS, soft, NT/ND, no masses/organomegaly/ascites Ext: warm, 2+ pulses in UE/LE bilaterally, no clubbing/cyanosis or edema Neuro: moves all extremities with generalized weakness, no focal findings Results & Data Results & Data ([facility]) Vital Signs (Past 12 Hours) Vital Signs Temp Pulse Resp BP Pulse Ox 03/09/21 07:30 36.7 C 77 18 105/67 94 Resident Activity Tracking Resident Involvement: Resident Care Provided Care Provided: Adult Hospital Medicine
[2021-03-09] MEDS: TAMSULOSIN HCL 0.4 MG CAP PO SCH (20:25)
[2021-03-10] MEDS: AVODART~ORDER AWAITING ACTION SCH ×2 (07:28→14:40)
[2021-03-10] MEDS: SENNA 8.6 MG TAB PO SCH (08:51)
[2021-03-10] MEDS: ENOXAPARIN INJ 30 MG/0.3 ML SYR SQ SCH (08:52)
[2021-03-10] MEDS: VENLAFAXINE HCL XR 150 MG CAPXR PO SCH (08:52)
[2021-03-10 09:12] LABS: Basophils # (auto) 0.01 K/uL (0-0.2); Basophils % (auto) 0.1 %; Eosinophils # (auto) 0.14 K/uL (0-0.5); Eosinophils % (auto) 1.8 %; Hematocrit (blood only) 42.9 % (42-52); Hemoglobin 14.8 g/dL (14.0-18.0); Immature Granulocytes # (auto) 0.01 K/uL (0.00-0.02); Immature Granulocytes % (auto) 0.1 %; Lymphocytes # (auto) 0.95 K/uL (1.2-3.4); Lymphocytes % (auto) 12.5 %; Mean Corpuscular Hemoglobin 32.8 pg (25-34); Mean Corpuscular Hgb Conc 34.5 g/dL (32-36); Mean Corpuscular Volume 95.1 fL (80-100); Mean Platelet Volume 9.9 fL (7.4-10.4); Monocytes # (auto) 0.78 K/uL (0.11-0.59); Monocytes % (auto) 10.3 %; Neutrophils # (auto) 5.69 K/uL (1.4-6.5); Neutrophils % (auto) 75.2 %; Platelet Count 132 K/uL (130-400); RDW Coefficient of Variation 14.2 % (11.5-14.5); RDW Standard Deviation 49.3 fL (36.4-46.3); Red Blood Count 4.51 M/uL (4.7-6.1); White Blood Count 7.58 K/uL (4.8-10.8)
[2021-03-10 09:34] LABS: Albumin Level 2.2 gm/dl (3.4-5.0); BUN Creatinine Ratio 16.4 (10-20); Calcium 8.5 mg/dl (8.5-10.1); Creatinine Clr Calc Pharmacy 67.4 ml/min; Est GFR (African American) 111.6 ml/min; Est GFR (Non-African American) 96.3 ml/min; Potassium 4.4 mmol/L (3.5-5.1)
[2021-03-10 09:38] LABS: Albumin Globulin Ratio 0.5 (0.9-2); Globulin 4.6 gm/dl (2.5-4.0); Total Protein 6.8 gm/dl (6.4-8.2)
--- NOTE | 2021-03-10 15:28 | Hospitalist Progress Note ---
Date of Service March 10, 2021 Assessment & Plan (1) Acidosis, lactic: (2) Acute dehydration: (3) Weakness: (4) Tourettes syndrome: (5) Debility: (6) Abnormal LFTs: Plan: Nadeem Tripp is a 60yo male with a PMHx of tourettes and debility presenting from his shelter with dehydration and failure to thrive. 03/10: After speaking with Quinten, the patient's brother, on the phone today, I gathered some information on his baseline. It seems the patient began experiencing several symptoms as of 1 to 2 months ago. The symptoms included balance issues, being less social, and difficulty swallowing with a muffled voice. Apparently the patient had gotten his difficulty swallowing evaluated in the outpatient setting via his shelter however records have yet to be obtained. I wonder if this difficulty swallowing was fully evaluated as he is transition to eating pured foods over the last month. Due to this he has began losing weight and now looks cachectic. This probably was part of the reason he came in dehydrated and malnourished on admission. He was unable to undergo a PT assessment this morning due to being uncooperative. PT will try again at a later time. We will want to evaluate his gait and see if he truly has problems with his balance which may warrant a brain MRI. Speech did see the patient yesterday however it is unsure whether or not they did a true swallowing assessment. I would like speech to see them again evaluate swallowing so we can determine whether he needs further evaluation. 1. Acidosis, lactic: Elevated lactate on arrival of 8.1 which improved with IVF. Repeat 2.2. Possibly secondary to dehydration, patient hypotensive on arrival which resolved with IVF x 2L -Continued IVF, LR at 100mL/hr, 3 bags completed as of this morning. No more fluids at this time. -Follow cultures sent by ER no growth thus far. No obvious source of infection at this time. UA is unremarkable. Skin intact. CXR with no infiltrates -Encourage PO intake -Consider dietary consultation 2. Acute dehydration: As above. IVF and electrolyte repletion -Encourage PO intake -Assistance with meals as needed 3. Weakness: Patient appear to have generalized weakness at shelter. No focal findings today. -Treatment of dehydration as above -CT head showed no hemorrhage or signs of ischemia. -Consider MRI brain - staff notes that he had a slight right eyelid droop 4. Abnormal LFTs: Patient with mild obstructive pattern on LFTs with SC=249 and Tbili=1.3. No RUQ tenderness -Labs resolving yesterday: AST 74, ALP 117, Tbili 0.9 -RUQ US: nonspecific gallbladder thickening, no cholelithiasis, no perichol ecystic fluid, no duct dilation -Today AST and ALP elevated once again to near admission levels. May be secondary to malnutrition or this fluctuation may be his baseline. We will continue to monitor and trend LFTs. 5. Tourettes syndrome: Chronic -Continue Pimozide 6. Intellectual disability: Patient requires assistance with ADLs -Fall precautions -Aspiration precautions -Turn q2 hours -Oral hygiene q shift -PT/OT evaluation: unable to participate this morning due to being uncooperative, will try again at a later time. F/E/N - no fluids at the moment, pureed with nectar thick liquids and aspiration precautions DVT Ppx - Lovenox 30 Code - Full per discussion with [facility] - Monitor, discharge possibly tomorrow, following with CM. Admission and Anticipated Discharge Date Admission Date: March 08, 2021 Supervising Physician Co-Signing Physician Notes I also saw the patient with the resident physician and confirmed maciel portions of the history and physical examination. I agree with the impression and plan as noted in the resident documentation. 60-year-old male with mental disabilities presented from a shelter with dehydration and failure to thrive. He had not been eating or drinking and progressively more weak. Today he is slightly more talkative, but really minimally above simple yes/no answers. Dr. Dubon was able To collect some collateral information from family today which is consistent with the previously known history, although with the addition of the dysphagia.Given the dysphagia and weight loss, he may need evaluation via EGD. Unfortunately, given his mental status, he really cannot provide much in the way of symptoms to guide our work-up. Exam 113/73, 86, 16, 36.7, 94% on room air He is in no acute distress. He will answer yes/no questions. HEENT grossly unremarkable. Membranes perhaps slightly dry. Heart regular rate and rhythm Lungs clear to auscultation, though decreased in the bases due to effort. Firm palpation of the abdomen without any appreciated tenderness. Data White blood count 7.58, hemoglobin 14.8, platelet count 132 Sodium 140, potassium 4.4, BUN 14, creatinine 0.83 AST elevated at 114, ALT 78, alkaline phosphatase 159 Albumin 2.2 Blood culture showed no growth at [address] of the head was unremarkable. Chest x-ray was unremarkable. Right upper quadrant ultrasound shows nonspecific gallbladder wall thickening. No cholelithiasis. Cholecystic fluid is identified. No biliary ductal dilatation was noted. Impression and plan Weakness/failure to thrive Protein calorie malnutrition with hypoalbuminemia Lactic acidosis, resolved Dehydration, resolved PT/OT consultations Repeat LFTs in a.m. he has a thickened gallbladder, but no other imaging signs of acute cholecystitis. He really cannot relate a history. If LFTs continue to trend up, could consider HIDA. Given dysphagia and weight loss, consider upper endoscopy. Really not able to obtain if he is having true GERD/gastric reflux symptoms. We will work to obtain records from prior hospitalization in outside facility His low protein and serum albumin are consistent with a chronic decline; hopefully old records will also help better define his chronic debilities. Subjective Laying comfortably in bed. Seems to be more talkative than yesterday however still difficult to understand. A lot of yes and no responses to my questions. Unsure if he fully comprehends what I am saying. Review of Systems Review of Systems: Unobtainable due to cognitive status Physical Exam Physical Exam: General: chronically ill appearing male patient, able to answer yes or no questions and follow some commands Skin: warm, dry, intact, scattered bruising - right shoulder, right forearm HEENT: NC/AT, PERRL, EOMI, anicteric sclera, conjunctiva without injection, external ear normal to inspection and nontender, nares patent, dry mucus membranes, dentition intact, no oropharyngeal lesions, neck supple, trachea mid line, no LAD, no thyromegaly, no JVD Heart: +S1/S2, regular, tachycardic, 3/6 ALFREDO across precordium, no rubs/gallops, pectus carinatum Lungs: equal air entry bilaterally, no rales/rhonchi/wheezes Abd: +BS, soft, NT/ND, no masses/organomegaly/ascites Ext: warm, 2+ pulses in UE/LE bilaterally, no clubbing/cyanosis or edema Neuro: moves all extremities with generalized weakness, no focal findings Results & Data Results & Data ([place]) Vital Signs (Past 12 Hours) Vital Signs Temp Pulse Resp BP Pulse Ox 03/10/21 06:37 36.6 C 86 16 118/70 93 Resident Activity Tracking Resident Involvement: Resident Care Provided Care Provided: Adult Hospital Medicine
[2021-03-10] MEDS: TAMSULOSIN HCL 0.4 MG CAP PO SCH (21:40)
[2021-03-11] MEDS: AVODART~ORDER AWAITING ACTION SCH ×4 (01:41→23:00)
--- NOTE | 2021-03-11 08:07 | Hospitalist Progress Note ---
Date of Service March 11, 2021 Assessment & Plan (1) Acute dehydration: Plan: As above. IVF and electrolyte repletion -Encourage PO intake -Assistance with meals as needed (2) Weakness: Plan: Patient appear to have generalized weakness at [facility] [facility]. No focal findings today. -Treatment of dehydration as above -CT head showed no hemorrhage or signs of ischemia. -Ordered barium swallow study for patient to check for any anatomic abnormalities, if negative will consider MRI brain, EGD. Consider GI consult. (3) Acidosis, lactic: Plan: Elevated lactate on arrival of 8.1 which improved with IVF. Repeat 2.2. Possibly secondary to dehydration, patient hypotensive on arrival which resolved with IVF x 2L -Continued IVF, LR at 100mL/hr, 3 bags completed as of this morning. No more fluids at this time. -Follow cultures sent by ER no growth thus far. No obvious source of infection at this time. UA is unremarkable. Skin intact. CXR with no infiltrates -Encourage PO intake -Dietary consulted (4) Tourettes syndrome: Plan: Chronic -Continue Pimozide (5) Debility: Plan: Same plan as weakness, failure to thrive may be due to troubles swallowing or patient not wanting to eat puree/decreased appetite. Will proceed with Barium swallow study. (6) Abnormal LFTs: Plan: Abnormal LFT's: Patient with raised LFT's on admission. Most likely due to dehydration hypovolemia. LFT's trending downward, AST/ALT 98/75. Admission and Anticipated Discharge Date Admission Date: March 08, 2021 Supervising Physician Co-Signing Physician Notes I personally examined the patient and verified all maciel points of history and exam, discussed case, and agree with decision making with Dr Acosta Not much of any meaningful history or review of systems obtainable from patient todayvaguely he seems to admit to feeling okay, mostly asks for more tea. Not really able to glean any meaningful HPI review of systems, unfortunately, does not seem to have pain or shortness of breath. Vitals noted, in general he is fairly cachectic but in no acute distress. HEENT normocephalic atraumatic mucous membranes are moist. Breathing unlabored no accessory muscle use good effort, lungs are clear without rales rhonchi or wheezes, deeply sunken chest, abdomen is soft nondistended nontender no masses organomegaly. Muscle wasting noted. Failure to thrivepresented with dehydration, it sounds like the second time he is been admitted for dehydration and very short order, this time also with a degree of transaminitis, and what appears to be probably severe acute protein calorie malnutrition -Hydrated, tolerating liquid diet -Working on getting to the bottom of the root cause of his failure to thriveawaiting records that have been scanned in the system, and it sounds like he had been seeing [facility], possibly?Will be able to review records if any are present. Otherwise, given that he had a modified diet as one possible clue as to what was going on, we will try to obtain information from his [place] [facility] on why the diet was modified, and will pursue differentials for dysphagia as the center of his failure to thrivestarting with a barium swallow, possible need for EGD if it is anything but perfectly normal, and if the barium swallow is perfectly normal, then pursue central nervous system reasons for dysphagia as an alternate differential. -Dietitian consult, nutritional support, supportive care. Otherwise as above Subjective Patient was seen at bedside today. Difficult to gauge patient comfort level as he gives one word answers and is easily distracted. 03/11 Spoke on phone with Care facility: Spoke on the phone with his nurse, August, from [facility] about the patient's past progression. He went and saw GI Dr. Anibal Rudd ([facility]) for colonoscopy and EGD around late December. Usually the patient would get colonoscopy or sigmoidoscopy every 3-6 months due to family history of colon cancer/polyps. When Dr. Rudd looked inside he found a colonic mass. Scheduled with [facility] for a further look as to what to remove. Patient started having trouble with food, started with ground up, sent to speech pathologist for [facility]. No recent swallow study done, were gonna do one but ended up in hospital. Quinten had him on puree diet on nectar honey, stopped feeding himself, staff had to feed him. Were doing meal then shake then meal then shake to try to increase calories. Lost 20 lbs since December, had PT coming in home to see him. PT able to get stand at side of bed but did not walk. In the hospital Thursday and and got out Thursday. Was at [facility], said he had severe dehydration. Ate once for brother, nurses were feeding him but not sure if anyone got him up and out of bed. Was getting heparin subq in belly at the time as well. Sodium prior to last hospitalization 163, when left 148. When ambulance came to get him couldn't get up to walk. Already starting to lose weight when the mass was found. Ended up keeping him home for a couple of days to see what was going on but declined. Got colonoscopy and sigmoidoscopy every 3-6 months but not when covid happened. Dr. Rudd said they did everything they could do for him. Was getting the has a hemoclip in his belly. December towards beginning of January. Walking around then started complaining of throat hurting, got mds rn involved, speech involved, PT involved and still up walking around and GI made him puree to see if that would help at all. Would take a couple bites and then say he was done. For a while was on boost with ice cream for calories. Was drinking that for a while. When his color shop helper saw him he thought he was in [facility] and wanted to go home Physical Exam Constitutional: WD/WN, vitals as above Patient with cachectic appearance. Eyes: PERRL, conjunctivae normal, anicteric sclerae Respiratory: normal respiratory effort, lungs clear to auscultation Cardiovascular: RRR, no murmur, no edema Gastrointestinal (Abdomen): normal bowel sounds, soft, nontender, no hepatosplenomegaly Psychiatric: Oriented to person, not to place or time. Results & Data Results & Data ([facility]) Vital Signs (Past 12 Hours) Vital Signs Temp Pulse Resp BP Pulse Ox 03/11/21 07:30 36.4 C L 92 H 16 104/65 96 03/10/21 22:31 36.9 C 87 16 125/76 97 Resident Activity Tracking Resident Involvement: Resident Care Provided Care Provided: Adult Hospital Medicine
[2021-03-11 08:44] LABS: Basophils # (auto) 0.02 K/uL (0-0.2); Basophils % (auto) 0.3 %; Eosinophils # (auto) 0.19 K/uL (0-0.5); Eosinophils % (auto) 2.7 %; Hematocrit (blood only) 41.8 % (42-52); Hemoglobin 14.2 g/dL (14.0-18.0); Immature Granulocytes # (auto) 0.02 K/uL (0.00-0.02); Immature Granulocytes % (auto) 0.3 %; Lymphocytes # (auto) 1.58 K/uL (1.2-3.4); Lymphocytes % (auto) 22.3 %; Mean Corpuscular Hemoglobin 32.1 pg (25-34); Mean Corpuscular Volume 94.6 fL (80-100); Neutrophils # (auto) 5.29 K/uL (1.4-6.5); Neutrophils % (auto) 74.4 %; Platelet Count 141 K/uL (130-400); RDW Coefficient of Variation 14.3 % (11.5-14.5); RDW Standard Deviation 49.6 fL (36.4-46.3); Red Blood Count 4.42 M/uL (4.7-6.1)
[2021-03-11] MEDS: VENLAFAXINE HCL XR 150 MG CAPXR PO SCH (08:58)
[2021-03-11] MEDS: SENNA 8.6 MG TAB PO SCH (08:58)
[2021-03-11] MEDS: ENOXAPARIN INJ 30 MG/0.3 ML SYR SQ SCH (09:01)
[2021-03-11 09:04] LABS: Calcium 7.4 mg/dl (8.5-10.1); Creatinine Clr Calc Pharmacy 67.4 ml/min; Est GFR (African American) 111.6 ml/min; Est GFR (Non-African American) 96.3 ml/min; Potassium 4.2 mmol/L (3.5-5.1)
[2021-03-11 09:07] LABS: Albumin Globulin Ratio 0.5 (0.9-2); Bilirubin,Total 0.7 mg/dl (0.2-1); Globulin 4.3 gm/dl (2.5-4.0); Total Protein 6.3 gm/dl (6.4-8.2)
[2021-03-11 10:20] LABS: iSTAT Creatinine 1.1 mg/dl (0.6-1.3); iSTAT Hemoglobin 16.3 g/dl (14.0-18.0); iSTAT Ionized Calcium 1.13 mmol/l (1.12-1.32); iSTAT Potassium 4.1 mmol/L (3.3-5.0)
--- NOTE | 2021-03-11 19:28 | Billing Data ---
Date of Service March 11, 2021 Coding Level of Care Code 31732 Subseq Hosp Care Lvl 3
[2021-03-11] MEDS: TAMSULOSIN HCL 0.4 MG CAP PO SCH (19:59)
[2021-03-12 06:45] LABS: Basophils # (auto) 0.02 K/uL (0-0.2); Basophils % (auto) 0.2 %; Eosinophils % (auto) 2.4 %; Hematocrit (blood only) 43.5 % (42-52); Hemoglobin 14.7 g/dL (14.0-18.0); Immature Granulocytes # (auto) 0.01 K/uL (0.00-0.02); Immature Granulocytes % (auto) 0.1 %; Lymphocytes # (auto) 1.34 K/uL (1.2-3.4); Lymphocytes % (auto) 16.2 %; Mean Corpuscular Hemoglobin 32.5 pg (25-34); Mean Corpuscular Hgb Conc 33.8 g/dL (32-36); Mean Platelet Volume 9.4 fL (7.4-10.4); Monocytes # (auto) 1.15 K/uL (0.11-0.59); Monocytes % (auto) 13.9 %; Neutrophils # (auto) 5.54 K/uL (1.4-6.5); Neutrophils % (auto) 67.2 %; Platelet Count 154 K/uL (130-400); RDW Coefficient of Variation 14.1 % (11.5-14.5); RDW Standard Deviation 49.9 fL (36.4-46.3); Red Blood Count 4.53 M/uL (4.7-6.1); White Blood Count 8.26 K/uL (4.8-10.8)
--- NOTE | 2021-03-12 07:09 | Hospitalist Progress Note ---
Date of Service March 12, 2021 Assessment & Plan (1) Acute dehydration: Plan: As above. IVF and electrolyte repletion -Encourage PO intake -Assistance with meals as needed (2) Weakness: Plan: [facility] No focal findings today. -Treatment of dehydration as above -CT head showed no hemorrhage or signs of ischemia. -Video swallow study showed no abnormalities for upper esophagus. Patient unable to do Barium swallow study since he cannot stand for more than 5 seconds, consulted GI for further workup with possible EGD for dysphagia. -Given history of mass found on colonoscopy and patient's frequency of previous checks (q3-6months) may suspect malignancy with metastasis as cause of failure to thrive. Will try to get records from [facility] from when patient was there to see if he had any imaging of chest and abdomen/pelvis, if not will order CT chest and Abdomen/pelvis. (3) Acidosis, lactic: Plan: Elevated lactate on arrival of 8.1 which improved with IVF. Repeat 2.2. Possibly secondary to dehydration, patient hypotensive on arrival which resolved with IVF x 2L -Continued IVF, LR at 100mL/hr, 3 bags completed as of this morning. No more fluids at this time. -Blood cultures from ED negative for any growth. UA is unremarkable. Skin intact. CXR with no infiltrates -Encourage PO intake -Dietary consulted (4) Tourettes syndrome: Plan: Chronic -Continue Pimozide (5) Debility: Plan: Same plan as weakness, failure to thrive may be due to troubles swallowing or patient not wanting to eat puree/decreased appetite. Will proceed with Barium swallow study. (6) Abnormal LFTs: Plan: Abnormal LFT's: Patient with raised LFT's on admission. Most likely due to dehydration hypovolemia. LFT's trending downward, AST/ALT 98/75. Admission and Anticipated Discharge Date Admission Date: March 08, 2021 Supervising Physician Co-Signing Physician Notes I personally examined the patient and verified all maciel points of history and exam, discussed case, and agree with decision making with Dr Acosta Not much of any meaningful history or review of systems obtainable from patient again todayvaguely he seems to admit to feeling okay, vaguely asks about home. Vitals noted, in general he is fairly cachectic but in no acute distress. HEENT normocephalic atraumatic mucous membranes are moist. Breathing unlabored no accessory muscle use good effort, breathing unlabored no accessory muscle use good effort. Skin shows no rashes no pallor or icterus. Muscle wasting noted Failure to thrivepresented with dehydration, it sounds like the second time he is been admitted for dehydration and very short order, this time also with a degree of transaminitis, and what appears to be probably severe acute protein c alorie malnutrition -Hydrated, tolerating liquid diet and appears he can tolerate a more advanced dietwe will progress -As far as root cause of his failure to thriveright now we are pursuing from 2 different angles1 being a dysphagia mechanism, since it seems like maybe some food intolerance was at culprittry to get a barium swallow, we were asked to get a video fluoroscopy to ensure he was a low aspiration risk, he did this, then whenever we try to get the barium swallow again, we were informed that he would not be able to participate well enough to do it. To that end we will consult GIfor evaluation/consideration of EGD. Also simultaneously working towards a malignancy etiologyparticularly given the colon massasking for records from [facility] as far as his recent hospital stay/any possible references to imaging, as well as his most recent colonoscopy. Low threshold to check CT chest abdomen pelvis (just waiting to make sure it was not just done last week) and work-up further from there. Otherwise as above Subjective Patient was seen at bedside today. Difficult to gauge patient comfort level as he gives one word answers and is easily distracted. 03/11 Spoke on phone with Care facility: Spoke on the phone with his nurse, August, from [facility] about the patient's past progression. He went and saw GI Dr. Anibal Rudd ([facility]) for colonoscopy and EGD around late December. Usually the patient would get colonoscopy or sigmoidoscopy every 3-6 months due to family history of colon cancer/polyps. When Dr. Rudd looked inside he found a colonic mass. Scheduled with [facility] for a further look as to what to remove. Patient started having trouble with food, started with ground up, sent to speech pathologist for [facility]. No recent swallow study done, were gonna do one but ended up in hospital. Quinten had him on puree diet on nectar honey, stopped feeding himself, staff had to feed him. Were doing meal then shake then meal then shake to try to increase calories. Lost 20 lbs since December, had PT coming in home to see him. PT able to get stand at side of bed but did not walk. In the hospital Thursday and and got out Thursday. Was at [facility], said he had severe dehydration. Ate once for brother, nurses were feeding him but not sure if anyone got him up and out of bed. Was getting heparin subq in belly at the time as well. Sodium prior to last hospitalization 163, when left 148. When ambulance came to get him couldn't get up to walk. Already starting to lose weight when the mass was found. Ended up keeping him home for a couple of days to see what was going on but declined. Got colonoscopy and sigmoidoscopy every 3-6 months but not when covid happened. Dr. Rudd said they did everything they could do for him. Was getting the has a hemoclip in his belly. December towards beginning of January. Walking around then started complaining of throat hurting, got solar sales energy advisor involved, speech involved, PT involved and still up walking around and GI made him puree to see if that would help at all. Would take a couple bites and then say he was done. For a while was on boost with ice cream for calories. Was drinking that for a while. When his fiberglass product tester saw him he thought he was in [facility] and wanted to go home Physical Exam Constitutional: WD/WN, vitals as above + cachectic and + malnourished Patient sitting comfortably in bed. Eyes: PERRL, conjunctivae normal, anicteric sclerae Respiratory: normal respiratory effort, lungs clear to auscultation Cardiovascular: RRR, no murmur, no edema Gastrointestinal (Abdomen): normal bowel sounds, soft, nontender, no hepatosplenomegaly Results & Data Results & Data ([facility]) Vital Signs (Past 12 Hours) Vital Signs Temp Pulse Resp BP Pulse Ox 03/11/21 23:14 36.5 C 84 14 109/62 92 Resident Activity Tracking Resident Involvement: Resident Care Provided Care Provided: Adult Hospital Medicine
[2021-03-12 07:13] LABS: Albumin Globulin Ratio 0.5 (0.9-2); Albumin Level 2.1 gm/dl (3.4-5.0); BUN Creatinine Ratio 14.9 (10-20); Bilirubin,Total 0.7 mg/dl (0.2-1); Calcium 8.7 mg/dl (8.5-10.1); Creatinine Clr Calc Pharmacy 71.7 ml/min; Est GFR (African American) 114.5 ml/min; Est GFR (Non-African American) 98.8 ml/min; Globulin 4.3 gm/dl (2.5-4.0); Potassium 4.5 mmol/L (3.5-5.1); Total Protein 6.4 gm/dl (6.4-8.2)
[2021-03-12] MEDS: AVODART~ORDER AWAITING ACTION SCH ×3 (08:08→23:52)
[2021-03-12] MEDS: SENNA 8.6 MG TAB PO SCH (08:09)
[2021-03-12] MEDS: ENOXAPARIN INJ 30 MG/0.3 ML SYR SQ SCH (08:18)
--- NOTE | 2021-03-12 13:50 | Fluoroscopy Report ---
FL video swallow HISTORY: Failure to thrive, dysphagia. TECHNIQUE: Video fluoroscopic evaluation of swallowing was performed in the AP and lateral projection s by the speech pathology staff. The patient is fed thin liquid barium, a barium coated wafer, and ba rium pudding. FLUOROSCOPY TIME: 1.8 minutes. A cine loop submitted. COMPARISON STUDY: None. FINDINGS: There is normal hyoid excursion and epiglottic deflection. Single episode of trace aspirati on with the thin liquid barium. The remaining barium consistencies showed no aspiration. IMPRESSION: 1. Single episode of trace aspiration with the thin liquid barium. 2. Please see the speech pathologist report for detailed findings and recommendations. ACT 112: Negative or not required by law. Electronically signed by: Rafael Cunningham M.D. 03/12/2021 1:49 PM
[2021-03-12] MEDS: VENLAFAXINE HCL XR 150 MG CAPXR PO SCH (16:16)
--- NOTE | 2021-03-12 19:21 | Billing Data ---
Date of Service March 12, 2021 Coding Level of Care Code 91429 Subseq Hosp Care Lvl 3
[2021-03-12] MEDS: TAMSULOSIN HCL 0.4 MG CAP PO SCH (20:12)
--- NOTE | 2021-03-13 06:53 | Hospitalist Progress Note ---
Date of Service March 13, 2021 Assessment & Plan (1) Acute dehydration: Plan: As above. IVF and electrolyte repletion -Encourage PO intake -Assistance with meals as needed (2) Weakness: Plan: Patient appear to have generalized weakness at assisted. No focal findings today. -Treatment of dehydration as above -CT head showed no hemorrhage or signs of ischemia. -Video swallow study showed no abnormalities for upper esophagus. Patient unable to do Barium swallow study since he cannot stand for more than 5 seconds, consulted GI for further workup with possible EGD for dysphagia. -CT abdomen and pelvis showed large amount of stool, moderate to severe distention of bladder possibly from large stool; CT chest showed multifocal groundglass opacities within the lungs which favor an infectious process such as viral pneumonia. Failure to thrive and patient not eating may have been from viral pneumonia seen on CT. -Will continue with feeds for patient and try to get him to defecate and monitor his progress over the next few days. (3) Acidosis, lactic: Plan: Elevated lactate on arrival of 8.1 which improved with IVF. Repeat 2.2. Possibly secondary to dehydration, patient hypotensive on arrival which resolved with IVF x 2L -Continued IVF, LR at 100mL/hr, 3 bags completed as of this morning. No more fluids at this time. -Blood cultures from ED negative for any growth. UA is unremarkable. Skin intact. CXR with no infiltrates -Encourage PO intake -Dietary consulted (4) Tourettes syndrome: Plan: Chronic -Continue Pimozide (5) Debility: Plan: Same plan as weakness, failure to thrive may be due to troubles swallowing or patient not wanting to eat puree/decreased appetite. Will proceed with Barium swallow study. (6) Abnormal LFTs: Plan: Abnormal LFT's: Patient with raised LFT's on admission. Most likely due to dehydration hypovolemia. LFT's trending downward, AST/ALT 98/75. Admission and Anticipated Discharge Date Admission Date: March 08, 2021 Supervising Physician Co-Signing Physician Notes I personally examined the patient and verified all maciel points of history and exam, discussed case, and agree with decision making with Dr Acosta Still no meaningful HPI or review of systems. GI input noted. We will try to obtain results of EGD. Late in the dayCT scans showing constipation, possibly resolving viral pneumonia. Vitals noted, in general he is fairly cachectic but in no acute distress. HEENT normocephalic atraumatic mucous membranes are moist. Breathing unlabored no accessory muscle use good effort, breathing unlabored no accessory muscle use good effort. Skin shows no rashes no pallor or icterus. Muscle wasting noted Failure to thrivepresented with dehydration, it sounds like the second time he is been admitted for dehydration and very short order, this time also with a degree of transaminitis, and what appears to be probably severe acute protein calorie malnutrition -Hydrated, tolerating diet. ----Root cause of failure to thrive continues to be evasive. Given the colon mass on colonoscopy, I harbored concerned about failure to thrive due to diffuse malignancy, but his CT chest abdomen pelvis is fairly reassuring in this regard. It does show a rather large fecal mass, but I would be hard pressed to say that he has failure to thrive from severe constipation when he clearly was cleaned out for a colonoscopy about 6 weeks ago, and the failure to thrive preceded and postdated that colonoscopy. I do still wonder if there could be some esophageal pathology at playwe will definitely want to obtain records of EGDit has been somewhat difficult to obtain records as far as what has happened over the last month or 2. We will continue to pursue. CT showing what appears to be a viral pneumonia type of a pictureI wonder if he had Covid at the beginning of his failure to thrivebecause with that context, he does appear somewhat reminiscent to Covid encephalopathy patients I took care of earlier in the pandemicI do not believe he was Covid tested around the beginning of failure to thrive, but will try to obtain those records, and see if we can test sense of taste and smell, given that lack of taste and smell could lead to a disinterest in food, and that, coupled with his altered mental status, could lead to a significant failure to thrive. Continue to consider differentials, and also in the meantime treat the constipation, and follow calorie intake. If he does well/meets calorie goals over several days here in the hospital, then it would be reasonable to transition to SNF with ongoing close observation of his calorie intake, with a goal of helping him through this/building him up/getting him towards home. Otherwise as above Subjective Patient was seen at bedside today. Difficult to gauge patient comfort level as he gives one word answers and is easily distracted. 03/11 Spoke on phone with Care facility: Spoke on the phone with his nurse, August, from [facility] about the patient's past progression. He went and saw GI Dr. Anibal Rudd ([facility]) for colonoscopy and EGD around late December. Usually the patient would get colonoscopy or sigmoidoscopy every 3-6 months due to family history of colon cancer/polyps. When Dr. Rudd looked inside he found a colonic mass. Scheduled with [facility] for a further look as to what to remove. Patient started having trouble with food, started with ground up, sent to speech pathologist for [facility]. No recent swallow study done, were gonna do one but ended up in hospital. Quinten had him on puree diet on nectar honey, stopped feeding himself, staff had to feed him. Were doing meal then shake then meal then shake to try to increase calories. Lost 20 lbs since December, had PT coming in home to see him. PT able to get stand at side of bed but did not walk. In the hospital Thursday and and got out Thursday. Was at [facility], said he had severe dehydration. Ate once for brother, nurses were feeding him but not sure if anyone got him up and out of bed. Was getting heparin subq in belly at the time as well. Sodium prior to last hospitalization 163, when left 148. When ambulance came to get him couldn't get up to walk. Already starting to lose weight when the mass was found. Ended up keeping him home for a couple of days to see what was going on but declined. Got colonoscopy and sigmoidoscopy every 3-6 months but not when covid happened. Dr. Rudd said they did everything they could do for him. Was getting the has a hemoclip in his belly. December towards beginning of January. Walking around then started complaining of throat hurting, got nurse aide evaluator involved, speech involved, PT involved and still up walking around and GI made him puree to see if that would help at all. Would take a couple bites and then say he was done. For a while was on boost with ice cream for calories. Was drinking that for a while. When his manager transportation planning saw him he thought he was in [facility] and wanted to go home 10/13 Spoke on phone with brother on phone: Told brother the current situation with the patient. Patient's brother was grateful for the update and I told him we would keep him posted. Brother said there were 2 medications that weren't covered by the hospital that he is going to bring over for the patient tomorrow along with a care package. Patient's Pimozide and Avidart will be brought tomorrow by patient's brother around lunch time. Physical Exam Constitutional: WD/WN, vitals as above + cachectic and + malnourished Eyes: PERRL, conjunctivae normal, anicteric sclerae Respiratory: normal respiratory effort, lungs clear to auscultation Cardiovascular: RRR, no murmur, no edema Gastrointestinal (Abdomen): normal bowel sounds, soft, nontender, no hepatosplenomegaly Results & Data Results & Data ([facility]) Vital Signs (Past 12 Hours) Vital Signs Temp Pulse Resp BP Pulse Ox 03/12/21 22:05 36.3 C L 93 H 15 115/74 95 Resident Activity Tracking Resident Involvement: Resident Care Provided Care Provided: Adult Hospital Medicine
[2021-03-13] MEDS: AVODART~ORDER AWAITING ACTION SCH ×3 (07:29→23:13)
[2021-03-13] MEDS: VENLAFAXINE HCL XR 150 MG CAPXR PO SCH (09:20)
[2021-03-13] MEDS: ENOXAPARIN INJ 30 MG/0.3 ML SYR SQ SCH (09:20)
[2021-03-13] MEDS: SENNA 8.6 MG TAB PO SCH (09:20)
--- NOTE | 2021-03-13 10:21 | Gastrointestinal Consultation ---
Date of Consultation March 13, 2021 Assessment & Plan (1) Oropharyngeal dysphagia: 1. No role for repeat EGD with oropharyngeal dysphagia. 2. Agree with CT imaging as ordered. 3. Strict aspiration precautions and dietary recommendations by FORWARDER OPERATOR. 4. Continue supportive care per primary team. 5. Outpatient GI follow up with primary fork truck driver at [facility]. Thank you for allowing us to participating in the care of this patient. If you have any questions or concerns, please do not hesitate to contact us. Supervising Physician Co-Signing Physician Notes I personally evaluated the patient and agree with the findings as documented by JAREK Uriarte Exam: abd: soft, nt, nd History of Present Illness Reason for Consultation: Dysphagia Requesting Physician: Dr. Acosta Attending Physician: Hollis Palacios DO History of Present Illness Patient is a 60 y.o. male admitted with failure to thrive. He resides in a alf. From review of records, it appears he did recently undergo both upper and lower endoscopy by Dr. Rudd in December. The patient has been having difficulty eating. Due to intellectual disability, he is unable to provide any meaningful history. The hospitalist did order a video swallow and FORWARDER OPERATOR evaluation. He was noted to have trace aspiration with thin liquids and demonstrated moderate oropharyngeal dysphagia. The patient is cachectic and is undergoing a CT chest/a/p per nursing for further evaluation and to eval for malignancy. Allergies Allergy/AdvReac Type Severity Reaction Status Date / Time aspirin Allergy Unknown ON Verified 03/08/21 21:47 [place] [facility] hepatitis B virus vaccine Allergy Unknown ON Verified 03/08/21 21:47 [place] [facility] peanut Allergy Unknown ON Verified 03/08/21 21:47 [place] [facility] peas Allergy Unknown ON Verified 03/08/21 21:47 [place] [facility] strawberry Allergy Unknown ON Verified 03/08/21 21:47 [place] [facility] tree nut Allergy Unknown ON Verified 03/08/21 21:47 [place] [facility] watermelon Allergy Unknown ON Verified 03/08/21 21:47 [place] [facility] Home Medications Medication Instructions Recorded Confirmed Type albuterol sulfate 90 mcg/actuation 2 puffs INH Q6H PRN 01/04/19 03/08/21 History aerosol inhaler (Ventolin HFA) clotrimazole 1 % topical cream 1 appln TOP BID PRN 01/04/19 03/08/21 History (Jock Itch (clotrimazole)) epinephrine 0.3 mg/0.3 mL 0.3 mg IM DIRECTED PRN 01/04/19 03/08/21 History injection, auto-injector montelukast 10 mg tablet 10 mg PO QAM 01/04/19 03/08/21 History pimozide 2 mg tablet 2 mg PO BID tab 01/04/19 03/08/21 History sennosides 8.6 mg tablet (Syl-roxie) 8.6 mg PO QAM 01/04/19 03/08/21 History dutasteride 0.5 mg capsule 0.5 mg PO DAILY #90 cap 07/23/20 03/08/21 Rx (Avodart) acetaminophen 500 mg tablet 500 mg PO Q4H PRN 03/08/21 03/08/21 History aluminum-mag hydroxide-simethicone 10 ml PO PCHS PRN 03/08/21 03/08/21 History 200 mg-200 mg-20 mg/5 mL oral susp (Antacid) chlorpheniramine-acetaminophen 2 2 tab PO Q4H PRN 03/08/21 03/08/21 History mg-325 mg tablet (Coricidin HBP Cold and Flu) dextromethorphan-guaifenesin 10 10 ml PO Q4H PRN 03/08/21 03/08/21 History mg-100 mg/5 mL oral syrup ibuprofen 200 mg tablet 200 mg PO Q4H PRN 03/08/21 03/08/21 History loperamide 2 mg tablet 2 mg PO DIRECTED PRN MDD 4 03/08/21 03/08/21 History TABS/DAY--NO MORE THAN 2 DAY nitrofurantoin macrocrystal 100 mg 100 mg PO QAM 03/08/21 03/08/21 History capsule phenol-phenolate sodium mucosal 5 spray PO Q2H PRN 03/08/21 03/08/21 History aerosol spray pimozide 1 mg tablet 1 mg PO BID 03/08/21 03/08/21 History tamsulosin 0.4 mg capsule 0.4 mg PO HS 03/08/21 03/08/21 History venlafaxine 150 mg 150 mg PO QAM 03/08/21 03/08/21 History capsule,extended release 24 hr Patient History Social History Smoking Status: Never smoker Hx Alcohol Use: No Hx Substance Use: No Preferred Language: Gambian Communication Ability: Impaired Communication Ability Comment: intellectual disability, tourettes Town Clerk Required: No Beliefs That Will Affect Care: None marital status: Single Current Living Situation: Personal Care Facility current occupational status: disabled Other Information That Helps Us Care for You: No Feels Safe at Home: Yes Safety Concerns: Feels Safe At This Time Dental Care, Regularly: Yes Assistive Devices: None Assistive Devices Comment: gait belt per report Review of Systems Review of Systems: Unobtainable due to mental health condition Physical Exam Constitutional: + cachectic and + frail appearing Eyes: EOM intact bilaterally Respiratory: normal respiratory effort Auscultation: lungs clear to auscultation bilaterally Cardiovascular: Rate/Rhythm: regular rate and regular rhythm Gastrointestinal (Abdomen): Inspection/Auscultation: abdomen normal to inspection and normal bowel sounds Percussion/Palpation: abdomen soft; abdomen nontender Psychiatric: Orientation: alert Results & Data ([facility]) Vital Signs (Past 12 Hours) Vital Signs Temp Pulse Resp BP Pulse Ox 03/13/21 07:35 36.8 C 91 H 16 106/62 93 PG Care Time/CCT Total # of Minutes Spent Total Time Spent with Patient: Total time spent is greater than 50% in coordination of care (as documented) at patient's floor/unit and/or counseling patient: Coding Level of Care Code 71054 Initial Inpt Care Lvl 3 Diagnoses Oropharyngeal dysphagia R13.12
[2021-03-13] MEDS ORDERED: OPTIRAY 320 100ml IV ONE (12:51)
--- NOTE | 2021-03-13 14:16 | CT Scan Report ---
ABDOMEN AND PELVIS CT WITH IV AND ORAL CONTRAST CT DOSE: HISTORY: weight loss, colon mass, ?malignancy TECHNIQUE: Multiaxial CT images of the abdomen and pelvis were performed following the use of intrave nous and oral contrast. A dose lowering technique was utilized adhering to the principles of ALARA. COMPARISON STUDY: None. FINDINGS: Please refer to the same day chest CT for further evaluation of the lung bases. No pneumope ritoneum. No pneumatosis. No suspicious lytic or blastic osseous lesions. A pectus excavatum deformit y is noted. Lobular contour to the anterior segment of the right hepatic lobe. However, no definite h epatic masses. The spleen, pancreas, adrenal glands, and gallbladder are unremarkable. There are few subcentimeter bilateral renal hypodense lesions. These are technically too small to catheterize but f avor cysts. No hydronephrosis. No retroperitoneal lymphadenopathy. Normal caliber abdominal aorta. No pelvic lymphadenopathy. Moderate to severe distention of the bladder extending into the right lower quadrant of the abdomen. Large rectal stool ball measuring 10 cm. Questionable segment of mild coloni c wall thickening within the left lower quadrant best seen on images 309 through 350. This is located within the proximal sigmoid colon. This favors under distention. Similar appearance to the distal de scending colon which is also likely decompressed. Moderate to large amount of stool seen throughout t he remaining colon. Normal appendix. No dilated loops of bowel to suggest an obstruction. Colonic div erticulosis. IMPRESSION: 1. Moderate to large amount of stool seen throughout the colon including a large rectal stool ball me asuring 10 cm. Disimpaction recommended. 2. Questionable thickening within the distal descending colon and proximal sigmoid colon is likely du e to underdistention. No surrounding inflammatory changes to suggest a colitis. Follow-up colonoscopy can be performed to exclude the less likely possibility of an underlying colonic lesion. 3. Moderate to severe distention of the bladder. This could be due to outlet obstruction from the lar ge rectal stool ball. 4. Additional findings as described above. ACT 112: Negative or not required by law. Electronically signed by: Rafael Cunningham M.D. 03/13/2021 2:15 PM
--- NOTE | 2021-03-13 14:52 | CT Scan Report ---
CT OF THE CHEST WITHOUT IV CONTRAST CLINICAL HISTORY: weight loss, ?malignancy COMPARISON STUDY: Chest radiograph March 08, 2021. CT DOSE: 820.96 mGy.cm TECHNIQUE: Axial images of the chest were obtained without IV contrast. Images were reviewed in the axial, sagittal, and coronal planes. IV contrast was not administered for this examination. Automat ed exposure control was utilized for the study. A dose lowering technique was utilized adhering to t he principles of ALARA. FINDINGS: Pectus excavatum deformity is noted. There is mild cardiomegaly. No pericardial effusion i s present. There is no pneumothorax or pleural effusion. Lungs are suboptimally assessed due to respi ratory motion. Mild paraseptal emphysema is present. There are multifocal groundglass opacities withi n the lungs. Note is made of a few pulmonary nodules, including a 4 mm right middle lobe nodule on im age 144 341. A few adjacent perifissural nodules are noted. The nodules are likely benign. Central ai rways are patent. Lungs are suboptimally assessed due to respiratory motion. No acute fracture or wesly picious lesion is identified within the visualized skeletal structures. There is contrast within the esophagus which may reflect gastroesophageal reflux. Abdomen and pelvis CT will be reported separatel y. No enlarged axillary, mediastinal or hilar lymph nodes are present. IMPRESSION: 1. No evidence for malignancy within the chest. 2. Multifocal groundglass opacities within the lungs which favor an infectious process such as viral pneumonia. 3. A few low suspicion pulmonary nodules which measure up to [address] in 6 months to ensure stability is recommended. 4. Mild paraseptal emphysema. ACT 112: Negative or not required by law. Electronically signed by: Dileep Martinez M.D. 03/13/2021 2:51 PM
[2021-03-13] MEDS: POLYETHYLENE (MIRALAX) 17 GM PACK PO SCH (15:57)
--- NOTE | 2021-03-13 17:29 | Billing Data ---
Date of Service March 13, 2021 Coding Level of Care Code 52756 Subseq Hosp Care Lvl 3
[2021-03-13] MEDS: TAMSULOSIN HCL 0.4 MG CAP PO SCH (20:00)
--- NOTE | 2021-03-14 07:19 | Hospitalist Progress Note ---
Date of Service March 14, 2021 Assessment & Plan (1) Acute dehydration: Plan: As above. IVF and electrolyte repletion -Encourage PO intake -Assistance with meals as needed (2) Weakness: Plan: Patient appear to have generalized weakness at nursing home. No focal findings today. -Treatment of dehydration as above -CT head showed no hemorrhage or signs of ischemia. -Video swallow study showed no abnormalities for upper esophagus. Patient unable to do Barium swallow study since he cannot stand for more than 5 seconds, consulted GI for further workup with possible EGD for dysphagia. -CT abdomen and pelvis showed large amount of stool, moderate to severe distention of bladder possibly from large stool; CT chest showed multifocal groundglass opacities within the lungs which favor an infectious process such as viral pneumonia. Failure to thrive and patient not eating may have been from viral pneumonia seen on CT. -Will continue with feeds for patient and try to get him to defecate and monitor his progress over the next few days. (3) Acidosis, lactic: Plan: Elevated lactate on arrival of 8.1 which improved with IVF. Repeat 2.2. Possibly secondary to dehydration, patient hypotensive on arrival which resolved with IVF x 2L -Continued IVF, LR at 100mL/hr, 3 bags completed as of this morning. No more fluids at this time. -Blood cultures from ED negative for any growth. UA is unremarkable. Skin intact. CXR with no infiltrates -Encourage PO intake -Dietary consulted (4) Tourettes syndrome: Plan: Chronic -Continue Pimozide (5) Debility: Plan: Same plan as weakness, failure to thrive may be due to troubles swallowing or patient not wanting to eat puree/decreased appetite. Will proceed with Barium swallow study. (6) Abnormal LFTs: Plan: Abnormal LFT's: Patient with raised LFT's on admission. Most likely due to dehydration hypovolemia. LFT's trending downward, AST/ALT 98/75. Admission and Anticipated Discharge Date Admission Date: March 08, 2021 Supervising Physician Co-Signing Physician Notes I personally examined the patient and verified all maciel points of history and exam, discussed case, and agree with decision making with Dr Acosta Still no meaningful HPI or review of systems. Discussed with dietitianthey are starting a calorie count. Vitals noted, in general he is fairly cachectic but in no acute distress. HEENT normocephalic atraumatic mucous membranes are moist. Breathing unlabored no accessory muscle use good effort, breathing unlabored no accessory muscle use good effort. Skin shows no rashes no pallor or icterus. Muscle wasting noted Failure to thrivepresented with dehydration, it sounds like the second time he is been admitted for dehydration and very short order, this time also with a degree of transaminitis, and what appears to be probably severe acute protein calorie malnutrition -Hydrated, tolerating diet. ----Root cause of failure to thrive continues to be evasive. Given the colon mass on colonoscopy, I harbored concerned about failure to thrive due to diffuse malignancy, but his CT chest abdomen pelvis is fairly reassuring in this regard. It does show a rather large fecal mass, but I would be hard pressed to say that he has failure to thrive from severe constipation when he clearly was cleaned out for a colonoscopy about 6 weeks ago, and the failure to thrive preceded and postdated that colonoscopy. I do still wonder if there could be some esophageal pathology at playwe will definitely want to obtain records of EGDit has been somewhat difficult to obtain records as far as what has happened over the last month or 2, probably will just need to call his primary statement clerks supervisor tomorrow. CT showing what appears to be a viral pneumonia type of a pictureI wonder if he had Covid at the beginning of his failure to thrivebecause with that context, he does appear somewhat reminiscent to Covid encephalopathy patients I took care of earlier in the pandemicI do not believe he was Covid tested around the beginning of failure to thrive, but will try to obtain those records, and see if we can test sense of taste and smell, given that lack of taste and smell could lead to a disinterest in food, and that, coupled with his altered mental status, could lead to a significant failure to thrive. Continue to consider differentials, and also in the meantime treat the constipation, and follow calorie intake. Calorie count x 48hrs started today. If he does well/meets calorie goals over several days here in the hospital, then it would be reasonable to transition to SNF with ongoing close observation of his calorie intake, with a goal of helping him through this/building him up/getting him towards home. outpt management for colon mass, which again, unless leading to recurrent constipation/poor throughput, i feel hard pressed to definitively say is the cause of his 20lbs weight loss/failure to thrive picture Otherwise as above Subjective Patient was seen at bedside today. Difficult to gauge patient comfort level as he gives one word answers and is easily distracted. 03/11 Spoke on phone with Care facility: Spoke on the phone with his nurse, August, from [facility] about the patient's past progression. He went and saw GI Dr. Anibal Rudd ([facility]) for colonoscopy and EGD around late December. Usually the patient would get colonoscopy or sigmoidoscopy every 3-6 months due to family history of colon cancer/polyps. When Dr. Rudd looked inside he found a colonic mass. Scheduled with [facility] for a further look as to what to remove. Patient started having trouble with food, started with ground up, sent to speech pathologist for [facility]. No recent swallow study done, were gonna do one but ended up in hospital. Quinten had him on puree diet on nectar honey, stopped feeding himself, staff had to feed him. Were doing meal then shake then meal then shake to try to increase calories. Lost 20 lbs since December, had PT coming in home to see him. PT able to get stand at side of bed but did not walk. In the hospital Thursday and and got out Thursday. Was at [facility], said he had severe dehydration. Ate once for brother, nurses were feeding him but not sure if anyone got him up and out of bed. Was getting heparin subq in belly at the time as well. Sodium prior to last hospitalization 163, when left 148. When ambulance came to get him couldn't get up to walk. Already starting to lose weight when the mass was found. Ended up keeping him home for a couple of days to see what was going on but declined. Got colonoscopy and sigmoidoscopy every 3-6 months but not when covid happened. Dr. Rudd said they did everything they could do for him. Was getting the has a hemoclip in his belly. December towards beginning of January. Walking around then started complaining of throat hurting, got flight inspector involved, speech involved, PT involved and still up walking around and GI made him puree to see if that would help at all. Would take a couple bites and then say he was done. For a while was on boost with ice cream for calories. Was drinking that for a while. When his petroleum plant operator saw him he thought he was in [facility] and wanted to go home 03/13 Spoke on phone with brother on phone: Told brother the current situation with the patient. Patient's brother was grateful for the update and I told him we would keep him posted. Brother said there were 2 medications that weren't covered by the hospital that he is going to bring over for the patient tomorrow along with a care package. Patient's Pimozide and Avidart will be brought tomorrow by patient's brother around lunch time. Physical Exam Constitutional: WD/WN, vitals as above + cachectic and + malnourished Eyes: PERRL, conjunctivae normal, anicteric sclerae Respiratory: normal respiratory effort, lungs clear to auscultation Cardiovascular: RRR, no murmur, no edema Gastrointestinal (Abdomen): normal bowel sounds, soft, nontender, no hepatosplenomegaly Results & Data Results & Data ([facility]) Vital Signs (Past 12 Hours) Vital Signs Temp Pulse Resp BP Pulse Ox 03/13/21 22:05 36.7 C 79 18 133/72 95 Resident Activity Tracking Resident Involvement: Resident Care Provided Care Provided: Adult Hospital Medicine
[2021-03-14] MEDS: AVODART~ORDER AWAITING ACTION SCH (08:13)
[2021-03-14] MEDS: ENOXAPARIN INJ 30 MG/0.3 ML SYR SQ SCH (08:13)
[2021-03-14] MEDS: VENLAFAXINE HCL XR 150 MG CAPXR PO SCH (08:13)
[2021-03-14] MEDS: SENNA 8.6 MG TAB PO SCH (08:13)
[2021-03-14] MEDS: POLYETHYLENE (MIRALAX) 17 GM PACK PO SCH (08:25)
[2021-03-14] MEDS: DUTASTERIDE PO SCH (14:09)
[2021-03-14] MEDS: PIMOZIDE 1 MG PO SCH ×2 (14:11→20:08)
[2021-03-14] MEDS: PIMOZIDE 2 MG TABLET PO SCH ×2 (14:11→20:07)
--- NOTE | 2021-03-14 19:23 | Billing Data ---
Date of Service March 14, 2021 Coding Level of Care Code 04451 Subseq Hosp Care Lvl 3
[2021-03-14] MEDS: TAMSULOSIN HCL 0.4 MG CAP PO SCH (20:08)
--- NOTE | 2021-03-15 06:53 | Hospitalist Progress Note ---
Date of Service March 15, 2021 Assessment & Plan (1) Acute dehydration: Plan: As above. IVF and electrolyte repletion -Encourage PO intake -Assistance with meals as needed (2) Weakness: Plan: Patient appear to have generalized weakness at senior care. No focal findings today. -Treatment of dehydration as above -CT head showed no hemorrhage or signs of ischemia. -Video swallow study showed no abnormalities for upper esophagus. Patient unable to do Barium swallow study since he cannot stand for more than 5 seconds. -CT abdomen and pelvis showed large amount of stool, moderate to severe dist ention of bladder possibly from large stool; CT chest showed multifocal groundglass opacities within the lungs which favor an infectious process such as viral pneumonia. Failure to thrive and patient not eating may have been from viral pneumonia seen on CT. -Dr. Palacios spoke to Dr. Izquierdo on the phone regarding the patient. Dr. Izquierdo stated he did not feel like the patient's rectal mass, if cancer, would contribute 100% to the patient's decline. -Calorie counting for patient done by nutrition shows not enough calories for daily consumption, still a possibility of swallowing issues contributing to the decline. After learning from Dr. Rudd there was no EGD done and after speaking with GI, they said they can do an EGD Thursday granted we get approval from patient's POA (brother). Will call brother and tell him of the updates as well as new visiting hours to try and get his brother to eat more. -Will continue with feeds for patient and try to get him to defecate and monitor his progress over the next few days. (3) Acidosis, lactic: Plan: Elevated lactate on arrival of 8.1 which improved with IVF. Repeat 2.2. Possibly secondary to dehydration, patient hypotensive on arrival which resolved with IVF x 2L -Continued IVF, LR at 100mL/hr, 3 bags completed as of this morning. No more fluids at this time. -Blood cultures from ED negative for any growth. UA is unremarkable. Skin intact. CXR with no infiltrates -Encourage PO intake -Dietary consulted (4) Tourettes syndrome: Plan: Chronic -Continue Pimozide (5) Debility: Plan: Same plan as weakness, failure to thrive may be due to troubles swallowing or patient not wanting to eat puree/decreased appetite. Will proceed with Barium swallow study. (6) Abnormal LFTs: Plan: Abnormal LFT's: Patient with raised LFT's on admission. Most likely due to dehydration hypovolemia. LFT's trending downward, AST/ALT 98/75. Admission and Anticipated Discharge Date Admission Date: March 08, 2021 Supervising Physician Co-Signing Physician Notes I personally examined the patient and verified all maciel points of history and exam, discussed case, and agree with decision making with Dr Acosta Still no meaningful HPI or review of systems. Dietitian updatedunfortunately so far his calorie count has not gone wellabout 450 jannet recorded yesterdaydinner was somehow not recorded, but we guessed that at best he took in about 700 jannet. Was able to reach patient's gastroenterology officehe did not have an EGD done. Was able to discuss with colorectal surgerywho agreed that it would be unlikely that the nonobstructing, nondiffusely metastatic colon mass would be unlikely to be this significant for his failure to thrivehe did note that maybe it could contribute to some of the weight loss, but certainly not everything that we are seeing. In discussion with GI locally, given that there was no EGD done, they are planning on moving forward with 1 next week Vitals noted, in general he is fairly cachectic but in no acute distress. HEENT normocephalic atraumatic mucous membranes are moist. Breathing unlabored no accessory muscle use good effort, breathing unlabored no accessory muscle use good effort. Skin shows no rashes no pallor or icterus. Muscle wasting noted Failure to thrivepresented with dehydration, it sounds like the second time he is been admitted for dehydration and very short order, this time also with a degree of transaminitis, and what appears to be probably severe acute protein calorie malnutrition -Hydrated, tolerating diet. ----Root cause of failure to thrive continues to be evasive. Given the colon mass on colonoscopy, I harbored concerned about failure to thrive due to diffuse malignancy, but his CT chest abdomen pelvis is fairly reassuring in this regard. It does show a rather large fecal mass, but I would be hard pressed to say that he has failure to thrive from severe constipation when he clearly was cleaned out for a colonoscopy about 6 weeks ago, and the failure to thrive preceded and postdated that colonoscopy. I do still wonder if there could be some esophageal pathology at playfor EGD next week. CT showing what appears to be a viral pneumonia type of a pictureI wonder if he had Covid at the beginning of his failure to thrivebecause with that context, he does appear somewhat reminiscent to Covid encephalopathy patients I took care of earlier in the pandemicI do not believe he was Covid tested around the beginning of failure to thrive, but will try to obtain those records, and see if we can test sense of taste and smell, given that lack of taste and smell could lead to a disinterest in food, and that, coupled with his altered mental status, could lead to a significant failure to thrive. Continue to consider differentials, and also in the meantime treat the constipation, and follow calorie intake. Calorie count x 48hrs completed today. If he does well/meets calorie goals over several days here in the hospital, then it would be reasonable to transition to SNF with ongoing close observation of his calorie intake, with a goal of helping him through this/building him up/getting him towards home. outpt management for colon mass, which again, unless leading to recurrent constipation/poor throughput, i feel hard pressed to definitively say is the cause of his 20lbs weight loss/failure to thrive picture Otherwise as above Subjective Patient was seen at bedside today. Patient said he is doing fine and has said he "home" a few times indicating that he wants to go home. He agreed he ate okay yesterday and agreed that he had a bowel movement the other day. 03/11 Spoke on phone with Care facility: Spoke on the phone with his nurse, August, from [facility] [employer] [facility] about the patient's past progression. He went and saw GI Dr. Anibal Rudd ([facility]) for colonoscopy around late December. The nurse said EGD at the time but Dr. Rudd clarified there was no EGD done, only colonoscopy which found a mass near the rectum. Usually the patient would get colonoscopy or sigmoidoscopy every 3-6 months due to family history of colon cancer/polyps. When Dr. Rudd looked inside he found a colonic mass. Scheduled with [facility] for a further look as to what to remove. Patient started having trouble with food, started with ground up, sent to speech pathologist for [facility]. No recent swallow study done, were gonna do one but ended up in hospital. Quinten had him on puree diet on nectar honey, stopped feeding himself, staff had to feed him. Were doing meal then shake then meal then shake to try to increase calories. Lost 20 lbs since December, had PT coming in home to see him. PT able to get stand at side of bed but did not walk. In the hospital Thursday and and got out Thursday. Was at [facility], said he had severe dehydration. Ate once for brother, nurses were feeding him but not sure if anyone got him up and out of bed. Was getting heparin subq in belly at the time as well. Sodium prior to last hospitalization 163, when left 148. When ambulance came to get him couldn't get up to walk. Already starting to lose weight when the mass was found. Ended up keeping him home for a couple of days to see what was going on but declined. Got colonoscopy and sigmoidoscopy every 3-6 months but not when covid happened. Dr. Rudd said they did everything they could do for him. Was getting the has a hemoclip in his belly. December towards beginning of January. Walking around then started complaining of throat hurting, got sectional belt mold assembler involved, speech involved, PT involved and still up walking around and GI made him puree to see if that would help at all. Would take a couple bites and then say he was done. For a while was on boost with ice cream for calories. Was drinking that for a while. When his gluing pressman saw him he thought he was in [facility] and wanted to go home 03/13 Spoke on phone with brother on phone: Told brother the current situation with the patient. Patient's brother was grateful for the update and I told him we would keep him posted. Brother said there were 2 medications that weren't covered by the hospital that he is going to bring over for the patient tomorrow along with a care package. Patient's Pimozide and Avidart will be brought tomorrow by patient's brother around lunch time. Physical Exam Constitutional: WD/WN, vitals as above + cachectic and + malnourished Eyes: PERRL, conjunctivae normal, anicteric sclerae Respiratory: normal respiratory effort, lungs clear to auscultation Cardiovascular: RRR, no murmur, no edema Gastrointestinal (Abdomen): normal bowel sounds, soft, nontender, no hepatosplenomegaly Results & Data Results & Data ([facility]) Vital Signs (Past 12 Hours) Vital Signs Temp Pulse Resp BP Pulse Ox 03/15/21 06:13 36.8 C 85 16 105/63 96 03/14/21 22:47 36.7 C 88 16 96/58 L 95 Resident Activity Tracking Resident Involvement: Resident Care Provided Care Provided: Adult Hospital Medicine
[2021-03-15] MEDS: ENOXAPARIN INJ 30 MG/0.3 ML SYR SQ SCH (08:09)
[2021-03-15] MEDS: PIMOZIDE 1 MG PO SCH ×2 (08:10→20:08)
[2021-03-15] MEDS: DUTASTERIDE PO SCH (08:11)
[2021-03-15] MEDS: PIMOZIDE 2 MG TABLET PO SCH ×2 (08:12→20:08)
[2021-03-15] MEDS: POLYETHYLENE (MIRALAX) 17 GM PACK PO SCH (08:14)
[2021-03-15] MEDS: VENLAFAXINE HCL XR 150 MG CAPXR PO SCH (08:15)
[2021-03-15] MEDS: SENNA 8.6 MG TAB PO SCH (08:15)
--- NOTE | 2021-03-15 18:53 | Billing Data ---
Date of Service March 15, 2021 Coding Level of Care Code 21533 Subseq Hosp Care Lvl 3
[2021-03-15] MEDS: TAMSULOSIN HCL 0.4 MG CAP PO SCH (20:09)
[2021-03-16 07:03] LABS: BUN Creatinine Ratio 10.1 (10-20); Creatinine Clr Calc Pharmacy 76.6 ml/min; Est GFR (African American) 117.7 ml/min; Est GFR (Non-African American) 101.5 ml/min; Potassium 4.1 mmol/L (3.5-5.1)
--- NOTE | 2021-03-16 07:14 | Hospitalist Progress Note ---
Date of Service March 16, 2021 Assessment & Plan (1) Acute dehydration: Plan: As above. IVF and electrolyte repletion -Encourage PO intake -Assistance with meals as needed (2) Weakness: Plan: Patient appear to have generalized weakness at care home. No focal findings today. -Treatment of dehydration as above -CT head showed no hemorrhage or signs of ischemia. -Video swallow study showed no abnormalities for upper esophagus. Patient unable to do Barium swallow study since he cannot stand for more than 5 seconds. -CT abdomen and pelvis showed large amount of stool, moderate to severe dist ention of bladder possibly from large stool; CT chest showed multifocal groundglass opacities within the lungs which favor an infectious process such as viral pneumonia. Failure to thrive and patient not eating may have been from viral pneumonia seen on CT. -Calorie intake minimum requirement 1500 calories per day and he is only eating around 60% of that. -Dr. Palacios spoke to Dr. Izquierdo on the phone regarding the patient. Dr. Izquierdo stated he did not feel like the patient's rectal mass, if cancer, would contribute 100% to the patient's decline. -Calorie counting for patient done by nutrition shows not enough calories for daily consumption, still a possibility of swallowing issues contributing to the decline. After learning from Dr. Rudd there was no EGD done and after speaking with GI, they said they can do an EGD Thursday granted we get approval from patient's POA (brother). Brother said he will be on standby to hear from GI for authorization of the EGD. -Will continue with feeds for patient and try to get him to defecate and monitor his progress over the next few days. (3) Acidosis, lactic: Plan: Elevated lactate on arrival of 8.1 which improved with IVF. Repeat 2.2. Possibly secondary to dehydration, patient hypotensive on arrival which resolved with IVF x 2L -Continued IVF, LR at 100mL/hr, 3 bags completed as of this morning. No more fluids at this time. -Blood cultures from ED negative for any growth. UA is unremarkable. Skin intact. CXR with no infiltrates -Encourage PO intake -Dietary consulted (4) Tourettes syndrome: Plan: Chronic -Continue Pimozide (5) Debility: Plan: Same plan as weakness, failure to thrive may be due to troubles swallowing or patient not wanting to eat puree/decreased appetite. Will proceed with Barium swallow study. (6) Abnormal LFTs: Plan: Abnormal LFT's: Patient with raised LFT's on admission. Most likely due to dehydration hypovolemia. LFT's trending downward, AST/ALT 98/75. Admission and Anticipated Discharge Date Admission Date: March 08, 2021 Supervising Physician Co-Signing Physician Notes I personally examined the patient and verified all maciel points of history and exam, discussed case, and agree with decision making with Dr Acosta Still no meaningful HPI or review of systems. Dietitian update is that unfortunately the patient only came in around 900 jannet with a low end goal of abo ut 1500 over the course of his calorie count. Anticipate EGD Thursday Vitals noted, in general he is fairly cachectic but in no acute distress. HEENT normocephalic atraumatic mucous membranes are moist. Breathing unlabored no accessory muscle use good effort, breathing unlabored no accessory muscle use good effort. Skin shows no rashes no pallor or icterus. Muscle wasting noted. Abdomen soft nondistended nontender no masses organomegaly. Failure to thrivepresented with dehydration, it sounds like the second time he is been admitted for dehydration and very short order, this time also with a degree of transaminitis, and what appears to be probably severe acute protein calorie malnutrition -Hydrated, tolerating diet. ----Root cause of failure to thrive continues to be evasive. Given the colon mass on colonoscopy, I harbored concerned about failure to thrive due to diffuse malignancy, but his CT chest abdomen pelvis is fairly reassuring in this regard. It does show a rather large fecal mass, but I would be hard pressed to say that he has failure to thrive from severe constipation when he clearly was cleaned out for a colonoscopy about 6 weeks ago, and the failure to thrive preceded and postdated that colonoscopy. I do still wonder if there could be some esophageal pathology at playfor EGD next week. CT showing what appears to be a viral pneumonia type of a pictureI wonder if he had Covid at the beginning of his failure to thrivebecause with that context, he does appear somewhat reminiscent to Covid encephalopathy patients I took care of earlier in the pandemicI do not believe he was Covid tested around the beginning of failure to thrive, but will try to obtain those records, and see if we can test sense of taste and smell, given that lack of taste and smell could lead to a disinterest in food, and that, coupled with his altered mental status, could lead to a significant failure to thrive. Continue to consider differentials, and also in the meantime treat the constipation, and follow calorie intake. Calorie count shows very poor intake, making it very unlikely he would thrive at home at this point. outpt management for colon mass, which again, unless leading to recurrent constipation/poor throughput, i feel hard pressed to definitively say is the cause of his 20lbs weight loss/failure to thrive picture. Continue to encourage calories, continue bowel regimen, anticipate EGD next week, continue to search for other differentials or etiologies Otherwise as above Subjective Patient was seen at bedside today. Patient was a little less responsive today but I had to wake him up so he may have still been sleepy. Hard to gauge much from the patient since he mostly responds with one word answers or not at all. 03/11 Spoke on phone with Care facility: Spoke on the phone with his nurse, August, from [facility] about the patient's past progression. He went and saw GI Dr. Anibal Rudd ([facility]) for colonoscopy around late December. The nurse said EGD at the time but Dr. Rudd clarified there was no EGD done, only colonoscopy which found a mass near the rectum. Usually the patient would get colonoscopy or sigmoidoscopy every 3-6 months due to family history of colon cancer/polyps. When Dr. Rudd looked inside he found a colonic mass. Scheduled with [facility] for a further look as to what to remove. Patient started having trouble with food, started with ground up, sent to speech pathologist for [facility]. No recent swallow study done, were gonna do one but ended up in hospital. Quinten had him on puree diet on nectar honey, stopped feeding himself, staff had to feed him. Were doing meal then shake then meal then shake to try to increase calories. Lost 20 lbs since December, had PT coming in home to see him. PT able to get stand at side of bed but did not walk. In the hospital Thursday and and got out Thursday. Was at [facility], said he had severe dehydration. Ate once for brother, nurses were feeding him but not sure if anyone got him up and out of bed. Was getting heparin subq in belly at the time as well. Sodium prior to last hospitalization 163, when left 148. When ambulance came to get him couldn't get up to walk. Already starting to lose weight when the mass was found. Ended up keeping him home for a couple of days to see what was going on but declined. Got colonoscopy and sigmoidoscopy every 3-6 months but not when covid happened. Dr. Rudd said they did everything they could do for him. Was getting the has a hemoclip in his belly. December towards beginning of January. Walking around then started complaining of throat hurting, got energy manager involved, speech involved, PT i nvolved and still up walking around and GI made him puree to see if that would help at all. Would take a couple bites and then say he was done. For a while was on boost with ice cream for calories. Was drinking that for a while. When his tire layer saw him he thought he was in [facility] and wanted to go home 03/13 Spoke on phone with brother on phone: Told brother the current situation with the patient. Patient's brother was grateful for the update and I told him we would keep him posted. Brother said there were 2 medications that weren't covered by the hospital that he is going to bring over for the patient tomorrow along with a care package. Patient's Pimozide and Avidart will be brought tomorrow by patient's brother around lunch time. 03/16 Spoke to brother (Power of Sewing Machine Operator) on phone about EGD: Patient asked previously if he needed to be present for a signature for authorization for his brother's EGD. Because he is a few hours out of town I told him one option would be for the tube drawer to call him prior to the procedure and get authorization that way. I told him if they needed him physically present though they will let him know. Patient was okay with this and said he will be on standby Thursday morning, best hours of contact being between 10AM and 3PM. I updated the patient on calorie intake for his brother and that we will try to get him increased calorie intake with higher caloric content boost or ensure supplements that he likes. Patient's brother was thankful for the updates and will wait for further information. Physical Exam Constitutional: WD/WN, vitals as above + cachectic and + malnourished Eyes: PERRL, conjunctivae normal, anicteric sclerae Respiratory: normal respiratory effort, lungs clear to auscultation Cardiovascular: RRR, no murmur, no edema Gastrointestinal (Abdomen): normal bowel sounds, soft, nontender, no hepatosplenomegaly Results & Data Results & Data ([facility]) Vital Signs (Past 12 Hours) Vital Signs Temp Pulse Resp BP Pulse Ox 03/15/21 22:14 36.6 C 87 17 114/66 95 Resident Activity Tracking Resident Involvement: Resident Care Provided Care Provided: Adult Hospital Medicine
[2021-03-16] MEDS: PIMOZIDE 2 MG TABLET PO SCH ×2 (09:46→20:48)
[2021-03-16] MEDS: ENOXAPARIN INJ 30 MG/0.3 ML SYR SQ SCH (09:49)
[2021-03-16] MEDS: DUTASTERIDE PO SCH (09:49)
[2021-03-16] MEDS: SENNA 8.6 MG TAB PO SCH (09:50)
[2021-03-16] MEDS: VENLAFAXINE HCL XR 150 MG CAPXR PO SCH (09:50)
[2021-03-16] MEDS: PIMOZIDE 1 MG PO SCH ×2 (09:50→20:50)
[2021-03-16] MEDS: POLYETHYLENE (MIRALAX) 17 GM PACK PO SCH (10:19)
--- NOTE | 2021-03-16 18:39 | Billing Data ---
Date of Service March 16, 2021 Coding Level of Care Code 21578 Subseq Hosp Care Lvl 2
[2021-03-16] MEDS: TAMSULOSIN HCL 0.4 MG CAP PO SCH (20:47)
--- NOTE | 2021-03-17 07:09 | Hospitalist Progress Note ---
Date of Service March 17, 2021 Assessment & Plan (1) Acute dehydration: Plan: As above. IVF and electrolyte repletion -Encourage PO intake -Assistance with meals as needed (2) Weakness: Plan: [facility] No focal findings today. -Treatment of dehydration as above -CT head showed no hemorrhage or signs of ischemia. -Video swallow study showed no abnormalities for upper esophagus. Patient unable to do Barium swallow study since he cannot stand for more than 5 seconds. -CT abdomen and pelvis showed large amount of stool, moderate to severe dist ention of bladder possibly from large stool; CT chest showed multifocal groundglass opacities within the lungs which favor an infectious process such as viral pneumonia. Failure to thrive and patient not eating may have been from viral pneumonia seen on CT. -Calorie intake minimum requirement 1500 calories per day and he is only eating around 60% of that. -Dr. Palacios spoke to Dr. Izquierdo on the phone regarding the patient. Dr. Izquierdo stated he did not feel like the patient's rectal mass, if cancer, would contribute 100% to the patient's decline. -Calorie counting for patient done by nutrition shows not enough calories for daily consumption, still a possibility of swallowing issues contributing to the decline. After learning from Dr. Rudd there was no EGD done and after speaking with GI, they said they can do an EGD Thursday granted we get approval from patient's POA (brother). Brother said he will be on standby to hear from GI for authorization of the EGD. -Will continue with feeds for patient and try to get him to defecate and monitor his progress over the next few days. (3) Acidosis, lactic: Plan: Elevated lactate on arrival of 8.1 which improved with IVF. Repeat 2.2. Possibly secondary to dehydration, patient hypotensive on arrival which resolved with IVF x 2L -Continued IVF, LR at 100mL/hr, 3 bags completed as of this morning. No more fluids at this time. -Blood cultures from ED negative for any growth. UA is unremarkable. Skin intact. CXR with no infiltrates -Encourage PO intake -Dietary consulted (4) Tourettes syndrome: Plan: Chronic -Continue Pimozide (5) Debility: Plan: Same plan as weakness, failure to thrive may be due to troubles swallowing or patient not wanting to eat puree/decreased appetite. (6) Abnormal LFTs: Plan: Abnormal LFT's: Patient with raised LFT's on admission. Most likely due to dehydration hypovolemia. LFT's trending downward, AST/ALT 85/84. Plan: DVT Ppx - Lovenox 30 Code - Full per discussion with [facility] Admission and Anticipated Discharge Date Admission Date: March 08, 2021 Supervising Physician Co-Signing Physician Notes I personally examined the patient and verified all maciel points of history and exam, discussed case, and agree with decision making with Dr Acosta More conversational lele of interaction with patient today, although I still really cannot glean any meaningful HPI or review of systems. Later revisitedbrother present, updated to the best my ability, answered all questions to the best my ability and to his satisfaction. He is absolutely consenting for his brother to have an EGD, understands the procedure/risks/benefits etc. Vitals noted, in general he is fairly cachectic but in no acute distress. HEENT normocephalic atraumatic mucous membranes are moist. Breathing unlabored no accessory muscle use good effort, breathing unlabored no accessory muscle use good effort. Skin shows no rashes no pallor or icterus. Muscle wasting noted. Abdomen soft nondistended nontender no masses organomegaly. Failure to thrivepresented with dehydration, it sounds like the second time he is been admitted for dehydration and very short order, this time also with a degree of transaminitis, and what appears to be probably severe acute protein calorie malnutrition -Hydrated, tolerating diet, but not taking in anywhere near enough calories ----Root cause of failure to thrive continues to be evasive. Given the colon mass on colonoscopy, I harbored concerned about failure to thrive due to diffuse malignancy, but his CT chest abdomen pelvis is fairly reassuring in this regard. It does show a rather large fecal mass, but I would be hard pressed to say that he has failure to thrive from severe constipation when he clearly was cleaned out for a colonoscopy about 6 weeks ago, and the failure to thrive preceded and postdated that colonoscopy. I do still wonder if there could be some esophageal pathology at playfor EGD next week. CT showing what appears to be a viral pneumonia type of a pictureI wonder if he had Covid at the beginning of his failure to thrivebecause with that context, he does appear somewhat reminiscent to Covid encephalopathy patients I took care of earlier in the pandemicI do not believe he was Covid tested around the beginning of failure to thrive, but will try to obtain those records, and see if we can test sense of taste and smell, given that lack of taste and smell could lead to a disinterest in food, and that, coupled with his altered mental status, could lead to a significant failure to thrive. Continue to consider differentials, and also in the meantime treat the constipation, and follow calorie intake. Calorie count shows very poor intake, making it very unlikely he would thrive at home at this point. outpt management for colon mass, which again, unless leading to recurrent constipation/poor throughput, i feel hard pressed to definitively say is the cause of his 20lbs weight loss/failure to thrive picture. Continue to encourage calories, continue bowel regimen, anticipate EGD next week, continue to search for other differentials or etiologies Otherwise as above Subjective Patient was seen at bedside today. Patient was a little less responsive today but I had to wake him up so he may have still been sleepy. Hard to gauge much from the patient since he mostly responds with one word answers or not at all. 03/11 Spoke on phone with Care facility: Spoke on the phone with his nurse, August, from [facility] about the patient's past progression. He went and saw GI Dr. Anibal Rudd ([facility]) for colonoscopy around late December. The nurse said EGD at the time but Dr. Rudd clarified there was no EGD done, only colonoscopy which found a mass near the rectum. Usually the patient would get colonoscopy or sigmoidoscopy every 3-6 months due to family history of colon cancer/polyps. When Dr. Rudd looked inside he found a colonic mass. Scheduled with [facility] for a further look as to what to remove. Patient started having trouble with food, started with ground up, sent to speech pathologist for [facility]. No recent swallow study done, were gonna do one but ended up in hospital. Quinten had him on puree diet on nectar honey, stopped feeding himself, staff had to feed him. Were doing meal then shake then meal then shake to try to increase calories. Lost 20 lbs since December, had PT coming in home to see him. PT able to get stand at side of bed but did not walk. In the hospital Thursday and and got out Thursday. Was at [facility], said he had severe dehydration. Ate once for brother, nurses were feeding him but not sure if anyone got him up and out of bed. Was getting heparin subq in belly at the time as well. Sodium prior to last hospitalization 163, when left 148. When ambulance came to get him couldn't get up to walk. Already starting to lose weight when the mass was found. Ended up keeping him home for a couple of days to see what was going on but declined. Got colonoscopy and sigmoidoscopy every 3-6 months but not when covid happened. Dr. Rudd said they did everything they could do for him. Was getting the has a hemoclip in his belly. December towards beginning of January. Walking around then started complaining of throat hurting, got correspondence school teacher involved, speech involved, PT involved and still up walking around and GI made him puree to see if that would help at all. Would take a couple bites and then say he was done. For a while was on boost with ice cream for calories. Was drinking that for a while. When his structural designer saw him he thought he was in [facility] and wanted to go home 03/13 Spoke on phone with brother on phone: Told brother the current situation with the patient. Patient's brother was grateful for the update and I told him we would keep him posted. Brother said there were 2 medications that weren't covered by the hospital that he is going to bring over for the patient tomorrow along with a care package. Patient's Pimozide and Avidart will be brought tomorrow by patient's brother around lunch time. 03/16 Spoke to brother (Power of Sampling Expert) on phone about EGD: Patient asked previously if he needed to be present for a signature for authorization for his brother's EGD. Because he is a few hours out of town I told him one option would be for the chemicals fermentation operator to call him prior to the procedure and get authorization that way. I told him if they needed him physically present though they will let him know. Patient was okay with this and said he will be on standby Thursday, best hours of contact being between 10AM and 3PM. I updated the patient on calorie intake for his brother and that we will try to get him increased calorie intake with higher caloric content [address] or ensure supplements that he likes. Patient's brother was thankful for the updates and will wait for further information. Physical Exam Constitutional: WD/WN, vitals as above + cachectic and + malnourished Eyes: PERRL, conjunctivae normal, anicteric sclerae Respiratory: normal respiratory effort, lungs clear to auscultation Cardiovascular: RRR, no murmur, no edema Gastrointestinal (Abdomen): normal bowel sounds, soft, nontender, no hepatosplenomegaly Results & Data Results & Data ([facility]) Vital Signs (Past 12 Hours) Vital Signs Temp Pulse Resp BP Pulse Ox 03/16/21 21:54 36.6 C 76 16 113/67 97 Resident Activity Tracking Resident Involvement: Resident Care Provided Care Provided: Adult Hospital Medicine
[2021-03-17] MEDS: ENOXAPARIN INJ 30 MG/0.3 ML SYR SQ SCH (09:21)
[2021-03-17] MEDS: DUTASTERIDE PO SCH (09:21)
[2021-03-17] MEDS: POLYETHYLENE (MIRALAX) 17 GM PACK PO SCH (09:22)
[2021-03-17] MEDS: PIMOZIDE 2 MG TABLET PO SCH ×2 (09:22→20:24)
[2021-03-17] MEDS: PIMOZIDE 1 MG PO SCH ×2 (09:22→20:24)
[2021-03-17] MEDS: VENLAFAXINE HCL XR 150 MG CAPXR PO SCH (09:23)
[2021-03-17] MEDS: SENNA 8.6 MG TAB PO SCH (09:24)
--- NOTE | 2021-03-17 20:08 | Billing Data ---
Date of Service March 17, 2021 Coding Level of Care Code 13841 Subseq Hosp Care Lvl 2
[2021-03-17] MEDS: TAMSULOSIN HCL 0.4 MG CAP PO SCH (20:23)
--- NOTE | 2021-03-18 07:07 | Hospitalist Progress Note ---
Date of Service March 18, 2021 Assessment & Plan (1) Acute dehydration: (2) Weakness: (3) Acidosis, lactic: (4) Tourettes syndrome: (5) Debility: (6) Abnormal LFTs: Plan: 60 year old male past medical history of cognitive impairment, Tourettes, and constipation admitted for dehydration and failure to thrive. Failure to thrive/Weakness: -Head CT negative, CT abd/pelv large amount of stool, CT chest with evidence of possible viral pneumonia. Video swallow without abnormalities. Colonoscopy from 6 weeks ago showed rectal mass. Calorie intake 60% of minimum required daily. -Failure to thrive differential: Viral pneumonia induced vs esophageal strictures preventing PO intake vs constipation + rectal mass. -Dr. Palacios spoke to Dr. Izquierdo on the phone regarding the patient. Dr. Izquierdo stated he did not feel like the patient's rectal mass, if cancer, would contribute 100% to the patient's decline. -As per GI, no current emergent need for scope, further outpatient testing recommended. Will try to contact patient's GI doc, Dr. Rudd, at [facility] for further recommendations. Will try to schedule EGD outpatient if recommended as soon as possible. -Will continue with feeds for patient and try to get him to defecate and monitor him tomorrow. Acute dehydration: -Secondary to patient's decreased PO intake over the past month and half. -Encourage PO intake -Assistance with meals as needed Rectal mass: -Follow for rectal mass biopsy results. consider oncology consult. Constipation: -Noted on CT -senna -daily bowel movement in the hospital Acidosis, lactic: Elevated lactate on arrival of 8.1 which improved with IVF. Repeat 2.2. Possibly secondary to dehydration, patient hypotensive on arrival which resolved with IVF x 2L -Continued IVF, LR at 100mL/hr, 3 bags completed as of this morning. No more fluids at this time. -Blood cultures from ED negative for any growth. UA is unremarkable. Skin intact. CXR with no infiltrates -Encourage PO intake -Dietary consulted Tourettes syndrome: -Continue Pimozide Debility: Same plan as weakness, failure to thrive may be due to troubles swallowing or patient not wanting to eat puree/decreased appetite. Abnormal LFTs: Patient with raised LFT's on admission. Most likely due to dehydration hypovolemia. LFT's trending downward, AST/ALT 85/84. DVT Ppx - Lovenox 30 Code - Full per discussion with Long-Term Admission and Anticipated Discharge Date Admission Date: March 08, 2021 Supervising Physician Co-Signing Physician Notes Resident Physician Supervision Note: I independently interviewed and examined the patient and verified the maciel history and physical, reviewed labs and image studies and agree with resident Dr. Acosta findings and care plan. Subjective Patient seen at the bedside this morning. Not much change from previous interactions. Patient says he is doing fine this morning and denies any pain or headache. Physical Exam Constitutional: WD/WN, vitals as above + cachectic and + frail appearing Eyes: PERRL, conjunctivae normal, anicteric sclerae Respiratory: normal respiratory effort, lungs clear to auscultation Cardiovascular: RRR, no murmur, no edema Gastrointestinal (Abdomen): normal bowel sounds, soft, nontender, no hepatosplenomegaly Results & Data Results & Data ([facility]) Vital Signs (Past 12 Hours) Vital Signs Temp Pulse Resp BP BP Pulse Ox 03/18/21 06:52 36.3 C L 101 H 16 99/61 L 94 03/17/21 23:35 36.8 C 78 16 118/70 97 Resident Activity Tracking Resident Involvement: Resident Care Provided Care Provided: Adult Hospital Medicine
[2021-03-18] MEDS: ENOXAPARIN INJ 30 MG/0.3 ML SYR SQ SCH (08:39)
[2021-03-18] MEDS: VENLAFAXINE HCL XR 150 MG CAPXR PO SCH (08:40)
[2021-03-18] MEDS: SENNA 8.6 MG TAB PO SCH (08:40)
[2021-03-18] MEDS: POLYETHYLENE (MIRALAX) 17 GM PACK PO SCH (08:41)
[2021-03-18] MEDS: DUTASTERIDE PO SCH (08:42)
[2021-03-18] MEDS: PIMOZIDE 2 MG TABLET PO SCH ×2 (08:42→20:23)
[2021-03-18] MEDS: PIMOZIDE 1 MG PO SCH ×2 (08:43→20:23)
--- NOTE | 2021-03-18 10:13 | Communication Note ---
Date of Service: March 18, 2021 Patient is a 60 yo male with weight loss and decline in oral intake. I would note that throughout the chart it is documented that he doesn't have esophageal abnormalities on his video swallow, however he does have moderate to severe oral dysphagia and mild to moderate pharyngeal dysphagia noted and would benefit from outpatient [employer] intervention. He cannot have a barium swallow due to his inability to stand for 5 minutes. I did speak to his primary GI who noted that his last EGD was in 2006 and was unremarkable. He has had CT scans of his chest, abdomen, & pelvis. There are no noted esophageal abnormalities. It seems as though his decreased oral intake is likely related to the abnormalities on the video swallow, however patient can have an outpatient EGD to formally exclude other esophageal issues.
[2021-03-18] MEDS: TAMSULOSIN HCL 0.4 MG CAP PO SCH (20:21)
--- NOTE | 2021-03-19 07:28 | Hospitalist Progress Note ---
Date of Service March 19, 2021 Assessment & Plan (1) Acute dehydration: (2) Weakness: (3) Acidosis, lactic: (4) Tourettes syndrome: (5) Debility: (6) Abnormal LFTs: Plan: 60 year old male past medical history of cognitive impairment, Tourettes, and constipation admitted for dehydration and failure to thrive. Failure to thrive/Weakness: -Head CT negative, CT abd/pelv large amount of stool, CT chest with evidence of possible viral pneumonia. Video swallow without abnormalities. Colonoscopy from 6 weeks ago showed rectal mass. Calorie intake 60% of minimum required daily. -Failure to thrive differential: Viral pneumonia induced vs esophageal strictures preventing PO intake vs constipation + rectal mass. -Dr. Palacios spoke to Dr. Izquierdo on the phone regarding the patient. Dr. Izquierdo stated he did not feel like the patient's rectal mass, if cancer, would contribute 100% to the patient's decline. -As per GI, no current emergent need for scope, further outpatient testing recommended. -As per Dr. Rudd, difficult to schedule EGD outpatient with him. Will try to schedule as soon as possible. -Ordered MRI w/o contrast brain r/o potential CVA changes. -Will continue with feeds for patient and try to get him to defecate and monitor him tomorrow. Acute dehydration: -Secondary to patient's decreased PO intake over the past month and half. -Encourage PO intake -Assistance with meals as needed Rectal mass: -Follow for rectal mass biopsy results. consider oncology consult. Constipation: -Noted on CT -daily bowel movement in the hospital - likely overflow. -aggressive bowel regimen. follow Past Hx Esophagitis: -As per Dr. Rudd, EGD from 2006 showed esophagitis. -Started Protonix BiD. Acidosis, lactic: Elevated lactate on arrival of 8.1 which improved with IVF. Repeat 2.2. Possibly secondary to dehydration, patient hypotensive on arrival which resolved with IVF x 2L -Blood cultures from ED negative for any growth. UA is unremarkable. Skin intact. CXR with no infiltrates -likely from hypovolemic hypoperfusion Tourettes syndrome: -Continue Pimozide Weakness/debility sec to Severe protein/calorie malnutrition: Same plan as weakness, failure to thrive may be due to troubles swallowing or patient not wanting to eat puree/decreased appetite. Abnormal LFTs: Patient with raised LFT's on admission. Most likely due to dehydration hypovolemia. LFT's trending downward, AST/ALT 85/84. DVT Ppx - Lovenox 30 Code - Full per discussion with [facility] Admission and Anticipated Discharge Date Admission Date: March 08, 2021 Supervising Physician Co-Signing Physician Notes Resident Physician Supervision Note: I independently interviewed and examined the patient and verified the maciel history and physical, reviewed labs and image studies and agree with resident Dr. Acosta findings and care plan. Subjective Patient seen at bedside this morning. Patient denies pain or headaches. Says he would like to go home. Physical Exam Constitutional: WD/WN, vitals as above + cachectic and + frail appearing Patient notably more active today than when he first came in. Eyes: PERRL, conjunctivae normal, anicteric sclerae Respiratory: normal respiratory effort, lungs clear to auscultation Cardiovascular: RRR, no murmur, no edema Gastrointestinal (Abdomen): normal bowel sounds, soft, nontender, no hepatosplenomegaly Results & Data Results & Data ([facility]) Vital Signs (Past 12 Hours) Vital Signs Temp Pulse Resp BP Pulse Ox 03/18/21 22:59 36.8 C 83 18 120/66 95 Resident Activity Tracking Resident Involvement: Resident Care Provided Care Provided: Adult Hospital Medicine
[2021-03-19] MEDS: PIMOZIDE 1 MG PO SCH ×2 (08:54→20:05)
[2021-03-19] MEDS: DUTASTERIDE PO SCH (08:55)
[2021-03-19] MEDS: PIMOZIDE 2 MG TABLET PO SCH ×2 (08:55→20:05)
[2021-03-19] MEDS: ENOXAPARIN INJ 30 MG/0.3 ML SYR SQ SCH (08:56)
[2021-03-19] MEDS: VENLAFAXINE HCL XR 150 MG CAPXR PO SCH (08:57)
[2021-03-19] MEDS: POLYETHYLENE (MIRALAX) 17 GM PACK PO SCH ×2 (08:57→15:04)
[2021-03-19] MEDS: SENNA 8.6 MG TAB PO SCH (08:57)
--- NOTE | 2021-03-19 13:06 | XRay Report ---
XR KUB/Abdomen 1 view CLINICAL HISTORY: constipation TECHNIQUE: 1 view of the abdomen was obtained. Comparison: None available at the time of this dictation. FINDINGS: Lung bases are unremarkable. The osseous structures are grossly unremarkable. The bowel gas pattern i s nonobstructive. A large stool burden is noted in the rectum. IMPRESSION: Large stool burden in the rectum which may represent impaction. ACT 112: Negative or not required by law. Electronically signed by: Doug Godoy M.D. 03/19/2021 1:05 PM
--- NOTE | 2021-03-19 18:20 | Magnetic Resonance Report ---
MRI OF THE BRAIN WITHOUT IV CONTRAST CLINICAL HISTORY: Change in mental status. COMPARISON STUDY: CT of the brain dated 03/08/2021. TECHNIQUE: MRI of the brain was performed utilizing various T1 and T2-weighted sequences in the axial , sagittal, and coronal planes. IV contrast was not administered for this examination. The examinatio n is significantly compromised by motion artifact. FINDINGS: Brain parenchyma: There is age-advanced involutional change noting minimal microangiopathic disease. There is no hemorrhage or mass effect. There is no restricted diffusion to suggest acute ischemia. Gr ay-white matter differentiation is preserved. No extra-axial fluid collection is seen. The cerebellar tonsils are normal in configuration. Ventricles, sulci, and cisterns: Prominent secondary to involutional change. Megacisterna magna is in cidentally noted. Pituitary and sella: Unremarkable. Intracranial vasculature: Normal flow voids are maintained at the skull base. Orbits: The bony orbits are grossly intact. Orbital contents are normal in appearance. Sinuses and mastoids: Clear. Calvarium: Unremarkable. Cervical cord: Partially visualized cervical spinal cord is normal in morphology and signal intensity . IMPRESSION: Age-advanced involutional change with no acute intracranial abnormality identified. ACT 112: Negative or not required by law. Electronically signed by: Frank Rodas M.D. 03/19/2021 6:19 PM
[2021-03-19] MEDS: PANTOprazole 40 MG in SYRINGE 0 ML IV SCH (20:04)
[2021-03-19] MEDS: TAMSULOSIN HCL 0.4 MG CAP PO SCH (20:04)
[2021-03-19] MEDS ORDERED: DOCUSATE SODIUM SYRUP 100 MG/10 ML UDC PO SCH (21:00)
--- NOTE | 2021-03-20 07:05 | Hospitalist Progress Note ---
Date of Service March 20, 2021 Assessment & Plan (1) Acute dehydration: (2) Weakness: (3) Acidosis, lactic: (4) Tourettes syndrome: (5) Debility: (6) Abnormal LFTs: Plan: 60 year old male past medical history of cognitive impairment, Tourettes, and constipation admitted for dehydration and failure to thrive. Failure to thrive/Weakness: -Head CT negative, CT abd/pelv large amount of stool, CT chest with evidence of possible viral pneumonia. Video swallow without abnormalities. Colonoscopy from 6 weeks ago showed rectal mass. Calorie intake 60% of minimum required daily. -Failure to thrive differential: Viral pneumonia induced vs esophageal strictures preventing PO intake vs constipation + rectal mass. -Per Dr. Izquierdo patient's rectal mass, if cancer, not contributing to 100% to the patient's decline. -As per GI, no current emergent need for scope, further outpatient testing recommended. -As per Dr. Rudd, difficult to schedule EGD outpatient with him. Will try to schedule as soon as possible. -MRI brain neg -Continue with aggressive bowel regimen. Acute dehydration: -Secondary to patient's decreased PO intake over the past month and half. -Encourage PO fluid intake. Rectal mass: -Follow for rectal mass biopsy results. consider oncology consult. Constipation: -Noted on CT -daily bowel movement in the hospital - likely overflow. -aggressive bowel regimen. follow Past Hx Esophagitis: -As per Dr. Rudd, EGD from 2006 showed esophagitis. -Started Protonix BiD. Acidosis, lactic: Elevated lactate on arrival of 8.1 which improved with IVF. Repeat 2.2. Possibly secondary to dehydration, patient hypotensive on arrival which resolved with IVF x 2L -Blood cultures from ED negative for any growth. UA is unremarkable. Skin intact. CXR with no infiltrates -likely from hypovolemic hypoperfusion Tourettes syndrome: -Continue Pimozide Weakness/debility sec to Severe protein/calorie malnutrition: Same plan as weakness, failure to thrive may be due to troubles swallowing or patient not wanting to eat puree/decreased appetite. Abnormal LFTs: Patient with raised LFT's on admission. Most likely due to dehydration hypovolemia. LFT's trending downward, AST/ALT 85/84. DVT Ppx - Lovenox 30 Code - Full per discussion with Assisted Anticipate d/c home once PO intake improved and has had resolution of constipation. Also, awaiting rectal mass biopsy results. Admission and Anticipated Discharge Date Admission Date: March 08, 2021 Supervising Physician Co-Signing Physician Notes Resident Physician Supervision Note: I independently interviewed and examined the patient and verified the maciel history and physical, reviewed labs and image studies and agree with resident Jessy Acosta findings and care plan. Subjective Patient seen at the bedside this morning. Patient denies any pain or headache. Still as active as the other day. Physical Exam Constitutional: WD/WN, vitals as above + cachectic and + frail appearing Eyes: PERRL, conjunctivae normal, anicteric sclerae Respiratory: normal respiratory effort, lungs clear to auscultation Cardiovascular: RRR, no murmur, no edema Gastrointestinal (Abdomen): normal bowel sounds, soft, nontender, no hepatosplenomegaly Results & Data Results & Data ([facility]) Vital Signs (Past 12 Hours) Vital Signs Temp Pulse Resp BP Pulse Ox 03/19/21 22:49 36.6 C 85 16 106/50 L 94
[2021-03-20] MEDS: SENNA 8.6 MG TAB PO SCH (09:48)
[2021-03-20] MEDS: PANTOprazole 40 MG in SYRINGE 0 ML IV SCH ×2 (09:48→20:07)
[2021-03-20] MEDS: VENLAFAXINE HCL XR 150 MG CAPXR PO SCH (09:48)
[2021-03-20] MEDS: DOCUSATE SODIUM 100 MG CAP PO SCH ×2 (09:48→20:07)
[2021-03-20] MEDS: DUTASTERIDE PO SCH (09:50)
[2021-03-20] MEDS: PIMOZIDE 2 MG TABLET PO SCH ×2 (09:50→20:07)
[2021-03-20] MEDS: PIMOZIDE 1 MG PO SCH ×2 (09:50→20:06)
[2021-03-20] MEDS ORDERED: MAGNESIUM HYDROXIDE SUSP 30 ML UDC PO PRN (09:57)
[2021-03-20] MEDS: POLYETHYLENE (MIRALAX) 17 GM PACK PO SCH (09:59)
[2021-03-20] MEDS: ENOXAPARIN INJ 30 MG/0.3 ML SYR SQ SCH (10:05)
[2021-03-20] MEDS ORDERED: RASPBERRY SYRUP 5 ML UDP PO PRN (12:00)
[2021-03-20] MEDS: TAMSULOSIN HCL 0.4 MG CAP PO SCH (20:08)
--- NOTE | 2021-03-21 08:00 | Hospitalist Progress Note ---
Date of Service March 21, 2021 Assessment & Plan (1) Acute dehydration: (2) Weakness: (3) Acidosis, lactic: (4) Tourettes syndrome: (5) Debility: (6) Abnormal LFTs: Plan: 60 year old male past medical history of cognitive impairment, Tourettes, and constipation admitted for dehydration and failure to thrive. Failure to thrive/Weakness: -Head CT negative, CT abd/pelv large amount of stool, CT chest with evidence of possible viral pneumonia. Video swallow without abnormalities. Colonoscopy from 6 weeks ago showed rectal mass. Calorie intake 60% of minimum required daily. -Failure to thrive differential: Viral pneumonia induced vs esophageal strictures preventing PO intake vs constipation + rectal mass. -Per Dr. Izquierdo patient's rectal mass, if cancer, not contributing to 100% to the patient's decline. -As per GI, no current emergent need for scope, further outpatient testing recommended. -As per Dr. Rudd, difficult to schedule EGD outpatient with him. Will try to schedule as soon as possible. -MRI brain neg -Continue with aggressive bowel regimen for resolution of constipation with anticipation that it will help with improved appetite Acute dehydration: -Secondary to patient's decreased PO intake over the past month and half. -continue to Encourage PO fluid intake. Rectal mass: -Follow for rectal mass biopsy results. Constipation: -Noted on CT -daily bowel movement in the hospital - likely overflow. -aggressive bowel regimen. follow Past Hx Esophagitis: -As per Dr. Rudd, EGD from 2006 showed esophagitis. -Started Protonix BiD. Acidosis, lactic: Elevated lactate on arrival of 8.1 which improved with IVF. Repeat 2.2. Po ssibly secondary to dehydration, patient hypotensive on arrival which resolved with IVF x 2L -Blood cultures from ED negative for any growth. UA is unremarkable. Skin intact. CXR with no infiltrates -likely from hypovolemic hypoperfusion Tourettes syndrome: -Continue Pimozide Abnormal LFTs: Patient with raised LFT's on admission. Most likely due to dehydration hypovolemia. LFT's trending downward, AST/ALT 85/84. DVT Ppx - Lovenox 30 Code - Full per discussion with [facility] d/c home once PO intake improved and has had resolution of constipation. Also, awaiting rectal mass biopsy results. Admission and Anticipated Discharge Date Admission Date: March 08, 2021 Supervising Physician Co-Signing Physician Notes Resident Physician Supervision Note: I independently interviewed and examined the patient and verified the maciel history and physical, reviewed labs and image studies and agree with resident Dr. Acosta findings and care plan. Subjective Patient seen at the bedside this morning. Patient denies any pain or headache. Still as active as the other day. Physical Exam Constitutional: WD/WN, vitals as above + cachectic and + frail appearing Eyes: PERRL, conjunctivae normal, anicteric sclerae Respiratory: normal respiratory effort, lungs clear to auscultation Cardiovascular: RRR, no murmur, no edema Gastrointestinal (Abdomen): normal bowel sounds, soft, nontender, no hepatosplenomegaly Patient with bowel movement when I saw him this morning. Results & Data Results & Data ([facility]) Vital Signs (Past 12 Hours) Vital Signs Temp Pulse Resp BP Pulse Ox 03/20/21 22:24 36.5 C 96 H 15 110/64 94 Resident Activity Tracking Resident Involvement: Resident Care Provided Care Provided: Adult [facility] Medicine
[2021-03-21] MEDS: VENLAFAXINE HCL XR 150 MG CAPXR PO SCH (08:10)
[2021-03-21] MEDS: SENNA 8.6 MG TAB PO SCH (08:10)
[2021-03-21] MEDS: DOCUSATE SODIUM 100 MG CAP PO SCH ×2 (08:10→20:06)
[2021-03-21] MEDS: POLYETHYLENE (MIRALAX) 17 GM PACK PO SCH (08:10)
[2021-03-21] MEDS: ENOXAPARIN INJ 30 MG/0.3 ML SYR SQ SCH (08:10)
[2021-03-21] MEDS: DUTASTERIDE PO SCH (08:12)
[2021-03-21] MEDS: PANTOprazole 40 MG in SYRINGE 0 ML IV SCH ×2 (08:12→20:06)
[2021-03-21] MEDS: PIMOZIDE 1 MG PO SCH ×2 (08:12→20:06)
[2021-03-21] MEDS: PIMOZIDE 2 MG TABLET PO SCH ×2 (08:12→20:06)
--- NOTE | 2021-03-21 09:02 | XRay Report ---
KUB CLINICAL HISTORY: Constipation. COMPARISON STUDY: CT of the abdomen and pelvis March 13, 2021. KUB March 19, 2021. FINDINGS: A large amount stool within the rectum has increased since exam of March 19, 2021. Minima l residual oral contrast from prior CT is noted. There is no evidence for a bowel obstruction. IMPRESSION: Increase in a large amount of stool within the rectum since prior exam. No bowel obstru ction. ACT 112: Negative or not required by law. Electronically signed by: Dileep Martinez M.D. 03/21/2021 9:01 AM
[2021-03-21] MEDS ORDERED: LAVAGE SOLUTION 4000ML PO ONE (11:00)
[2021-03-21] MEDS: TAMSULOSIN HCL 0.4 MG CAP PO SCH (20:06)
[2021-03-22] MEDS: ENOXAPARIN INJ 30 MG/0.3 ML SYR SQ SCH (09:10)
[2021-03-22] MEDS: PANTOprazole 40 MG in SYRINGE 0 ML IV SCH ×2 (09:10→21:15)
[2021-03-22] MEDS: PIMOZIDE 2 MG TABLET PO SCH ×2 (09:13→21:17)
[2021-03-22] MEDS: DOCUSATE SODIUM 100 MG CAP PO SCH (09:13)
[2021-03-22] MEDS: PIMOZIDE 1 MG PO SCH ×2 (09:14→21:17)
[2021-03-22] MEDS: DUTASTERIDE PO SCH (09:14)
[2021-03-22] MEDS: SENNA 8.6 MG TAB PO SCH (09:15)
[2021-03-22] MEDS: POLYETHYLENE (MIRALAX) 17 GM PACK PO SCH (09:16)
[2021-03-22] MEDS: VENLAFAXINE HCL XR 150 MG CAPXR PO SCH (09:16)
--- NOTE | 2021-03-22 11:41 | Hospitalist Progress Note ---
Date of Service March 22, 2021 Assessment & Plan (1) Acute dehydration: (2) Weakness: (3) Acidosis, lactic: (4) Tourettes syndrome: (5) Debility: (6) Abnormal LFTs: Plan: 60 year old male past medical history of cognitive impairment, Tourettes, and constipation admitted for dehydration and failure to thrive. Failure to thrive/Weakness: -Head CT negative, CT abd/pelv large amount of stool, CT chest with evidence of possible viral pneumonia. Video swallow without abnormalities. Colonoscopy from 6 weeks ago showed rectal mass. Calorie intake 60% of minimum required daily. -Failure to thrive differential: Viral pneumonia induced vs esophageal strictures preventing PO intake vs constipation + rectal mass. -Per Dr. Izquierdo patient's rectal mass, if cancer, not contributing to 100% to the patient's decline. -As per GI, no current emergent need for scope, further outpatient testing recommended. -As per Dr. Rudd, difficult to schedule EGD outpatient with him. Case management trying to schedule as soon as possible. -Mass still present after aggressive bowel movement regimen. Likely rectal mass and no fecal matter. -Patient will need to follow up with colorectal surgeon at this point for the mass most likely causing his decreased appetite and failure to thrive. -Possible discharge tomorrow. Acute dehydration: -resolved with hydration and PO intake. Rectal mass: -Follow for rectal mass biopsy results. -Case management scheduling him for outpatient visit with Dr. Garcia (colorectal surgeon). Constipation: -Noted on CT -daily bowel movement in the hospital - likely overflow. -Mass still present on KUB, most likely mostly cancerous mass based on sigmoidoscopy report. -D/C'ed aggressive constipation regimen. Past Hx Esophagitis: -As per Dr. Rudd, EGD from 2006 showed esophagitis. -Started Protonix BiD. Acidosis, lactic: Elevated lactate on arrival of 8.1 which improved with IVF. Repeat 2.2. Possibly secondary to dehydration, patient hypotensive on arrival which resolved with IVF x 2L -Blood cultures from ED negative for any growth. UA is unremarkable. Skin intact. CXR with no infiltrates -likely from hypovolemic hypoperfusion Tourettes syndrome: -Continue Pimozide Abnormal LFTs: Patient with raised LFT's on admission. Most likely due to dehydration hypovolemia. LFT's trending downward, AST/ALT 85/84. DVT Ppx - Lovenox 30 Code - Full per discussion with [facility] An[facility] d/c home once PO intake improved and has had resolution of constipation. Also, awaiting rectal mass biopsy results. Admission and Anticipated Discharge Date Admission Date: March 08, 2021 Supervising Physician Co-Signing Physician Notes Resident Physician Supervision Note: I independently interviewed and examined the patient and verified the maciel history and physical, reviewed labs and image studies and agree with resident Dr. Acosat findings and care plan. Subjective Patient seen at the bedside this morning. Patient denies any pain or headache. Still as active as the other day. Physical Exam Constitutional: WD/WN, vitals as above + cachectic Eyes: PERRL, conjunctivae normal, anicteric sclerae Respiratory: normal respiratory effort, lungs clear to auscultation Cardiovascular: RRR, no murmur, no edema Gastrointestinal (Abdomen): normal bowel sounds, soft, nontender, no hepatosplenomegaly Results & Data Results & Data ([facility]) Vital Signs (Past 12 Hours) Vital Signs Temp Pulse Resp BP Pulse Ox 03/22/21 07:20 36.7 C 97 H 14 105/69 94 Resident Activity Tracking Resident Involvement: Resident Care Provided Care Provided: Adult Hospital Medicine
--- NOTE | 2021-03-22 13:49 | XRay Report ---
KUB HISTORY: Constipation COMPARISON: KUB 03/21/2021. FINDINGS: Slight improvement in the large amount of stool within the rectum. This measures a diameter of 8.8 cm, previously measuring 10.5 cm. Moderate stool within the proximal colon persists. No evide nce for bowel obstruction. No renal calculi. No ureteral calculi. No pneumoperitoneum or pneumatosis . IMPRESSION: Slight improvement in the large amount of stool within the rectum compared to the prior study. ACT 112: Negative or not required by law. Electronically signed by: Rafael Cunningham M.D. 03/22/2021 1:48 PM
[2021-03-22] MEDS: TAMSULOSIN HCL 0.4 MG CAP PO SCH (21:16)
[2021-03-23] MEDS: PIMOZIDE 1 MG PO SCH ×2 (08:30→21:45)
[2021-03-23] MEDS: PIMOZIDE 2 MG TABLET PO SCH ×2 (08:30→21:44)
[2021-03-23] MEDS: DUTASTERIDE PO SCH (08:30)
[2021-03-23] MEDS: ENOXAPARIN INJ 30 MG/0.3 ML SYR SQ SCH (08:31)
[2021-03-23] MEDS: PANTOprazole 40 MG in SYRINGE 0 ML IV SCH ×2 (08:31→21:43)
[2021-03-23] MEDS: VENLAFAXINE HCL XR 150 MG CAPXR PO SCH (08:32)
[2021-03-23] MEDS: SENNA 8.6 MG TAB PO SCH (08:32)
--- NOTE | 2021-03-23 11:43 | Hospitalist Progress Note ---
Date of Service March 23, 2021 Assessment & Plan (1) Acute dehydration: (2) Weakness: (3) Acidosis, lactic: (4) Tourettes syndrome: (5) Debility: (6) Abnormal LFTs: Plan: 60 year old male past medical history of cognitive impairment, Tourettes, and constipation admitted for dehydration and failure to thrive. Failure to thrive/Weakness: -Head CT negative, CT abd/pelv large amount of stool, CT chest with evidence of possible viral pneumonia. Video swallow without abnormalities. Colonoscopy from 6 weeks ago showed rectal mass. Calorie intake 60% of minimum required daily. -Failure to thrive differential: Viral pneumonia induced vs esophageal strictures preventing PO intake vs constipation + rectal mass. -Per Dr. Izquierdo patient's rectal mass, if cancer, not contributing to 100% to the patient's decline. -As per GI, no current emergent need for scope, further outpatient testing recommended. -As per Dr. Rudd, difficult to schedule EGD outpatient with him. Case management trying to schedule as soon as possible. -Mass still present after aggressive bowel movement regimen. Likely rectal mass and no fecal matter. -Patient will need to follow up with colorectal surgeon at this point for the mass most likely causing his decreased appetite and failure to thrive. -Awaiting placement at SNF for PT/OT that his [facility]ci is unable to provide. Acute dehydration: -resolved with hydration and PO intake. Rectal mass: -Follow for rectal mass biopsy results. -Case management scheduling him for outpatient visit with Dr. Garcia (colorectal surgeon). Constipation: -Noted on CT -daily bowel movement in the hospital - likely overflow. -Mass still present on KUB, most likely mostly cancerous mass based on sigmoidoscopy report. -D/C'ed aggressive constipation regimen. Past Hx Esophagitis: -As per Dr. Rudd, EGD from 2006 showed esophagitis. -Started Protonix BiD. Acidosis, lactic: Elevated lactate on arrival of 8.1 which improved with IVF. Repeat 2.2. Possibly secondary to dehydration, patient hypotensive on arrival which resolved with IVF x 2L -Blood cultures from ED negative for any growth. UA is unremarkable. Skin intact. CXR with no infiltrates -likely from hypovolemic hypoperfusion Tourettes syndrome: -Continue Pimozide Abnormal LFTs: Patient with raised LFT's on admission. Most likely due to dehydration hypovolemia. LFT's trending downward DVT Ppx - Lovenox 30 Code - Full per discussion with [facility] Anticipate d/c to SNF Admission and Anticipated Discharge Date Admission Date: March 08, 2021 Supervising Physician Co-Signing Physician Notes Resident Physician Supervision Note: I independently interviewed and examined the patient and verified the maciel histor y and physical, reviewed labs and image studies and agree with resident Dr. Smallwood findings and care plan. Subjective Patient seen at the bedside this morning. Patient is mostly non-verbal and states only singular words. Today he had repeated the word home several times and indicates that he wants to leave. The patient was told what the plan is to remind him that he is going to go to a facility to get his strength back whenever we are able to find a place for him. Otherwise patient had no overnight events. Nurse indicated he ate some food and drank most of his protein shake. Pt does not report any over night events, however, it is difficult to get much information out of him. Review of Systems Review of Systems: All systems reviewed & are unremarkable except as noted in HPI & below Able to state no to questions asked. Physical Exam Constitutional: WD/WN, vitals as above + cachectic and + frail appearing Eyes: PERRL, conjunctivae normal, anicteric sclerae Respiratory: normal respiratory effort, lungs clear to auscultation Cardiovascular: RRR, no murmur, no edema Gastrointestinal (Abdomen): normal bowel sounds, soft, nontender, no hepatosplenomegaly Results & Data Results & Data ([facility]) Vital Signs (Past 12 Hours) Vital Signs Temp Pulse Resp BP Pulse Ox 03/23/21 06:06 36.6 C 98 H 17 115/64 95 Resident Activity Tracking Resident Involvement: Resident Care Provided Care Provided: Adult Hospital Medicine
[2021-03-23] MEDS: TAMSULOSIN HCL 0.4 MG CAP PO SCH (21:43)
[2021-03-24] MEDS: ENOXAPARIN INJ 30 MG/0.3 ML SYR SQ SCH (08:56)
[2021-03-24] MEDS: DUTASTERIDE PO SCH (08:56)
[2021-03-24] MEDS: PIMOZIDE 1 MG PO SCH ×2 (08:57→21:05)
[2021-03-24] MEDS: PANTOprazole 40 MG in SYRINGE 0 ML IV SCH ×2 (08:57→21:01)
[2021-03-24] MEDS: VENLAFAXINE HCL XR 150 MG CAPXR PO SCH (08:58)
[2021-03-24] MEDS: SENNA 8.6 MG TAB PO SCH (08:58)
[2021-03-24] MEDS: PIMOZIDE 2 MG TABLET PO SCH ×2 (08:58→21:05)
--- NOTE | 2021-03-24 17:59 | Hospitalist Progress Note ---
Date of Service March 24, 2021 Assessment & Plan (1) Acute dehydration: (2) Weakness: (3) Acidosis, lactic: (4) Tourettes syndrome: (5) Debility: (6) Abnormal LFTs: Plan: 60 year old male past medical history of cognitive impairment, Tourettes, and constipation admitted for dehydration and failure to thrive. Failure to thrive/Weakness: -Head CT negative, CT abd/pelv large amount of stool, CT chest with evidence of possible viral pneumonia. Video swallow without abnormalities. Colonoscopy from 6 weeks ago showed rectal mass. Calorie intake 60% of minimum required daily. -Failure to thrive differential: Viral pneumonia induced vs esophageal strictures preventing PO intake vs constipation + rectal mass. -Per Dr. Izquierdo patient's rectal mass, if cancer, not contributing to 100% to the patient's decline. -As per GI, no current emergent need for scope, further outpatient testing recommended. -As per Dr. Rudd, difficult to schedule EGD outpatient with him. Case management trying to schedule as soon as possible. -Mass still present after aggressive bowel movement regimen. Likely rectal mass and no fecal matter. -Patient will need to follow up with colorectal surgeon at this point for the mass most likely causing his decreased appetite and failure to thrive. -Awaiting placement at SNF for PT/OT that his residential is unable to provide. Acute dehydration: -resolved with hydration and PO intake. Rectal mass: -Follow for rectal mass biopsy results. -Case management scheduling him for outpatient visit with Dr. Garcia (colorectal surgeon). Constipation: -Noted on CT -daily bowel movement in the hospital - likely overflow. -Mass still present on KUB, most likely mostly cancerous mass based on sigmoidoscopy report. -D/C'ed aggressive constipation regimen. Past Hx Esophagitis: -As per Dr. Rudd, EGD from 2006 showed esophagitis. -Started Protonix BiD. Acidosis, lactic: Elevated lactate on arrival of 8.1 which improved with IVF. Repeat 2.2. Possibly secondary to dehydration, patient hypotensive on arrival which resolved with IVF x 2L -Blood cultures from ED negative for any growth. UA is unremarkable. Skin intact. CXR with no infiltrates -likely from hypovolemic hypoperfusion Tourettes syndrome: -Continue Pimozide Abnormal LFTs: Patient with raised LFT's on admission. Most likely due to dehydration hypovolemia. LFT's trending downward DVT Ppx - Lovenox 30 Code - Full per discussion with [facility] Anticipate d/c to SNF Admission and Anticipated Discharge Date Admission Date: March 08, 2021 Supervising Physician Co-Signing Physician Notes Resident Physician Supervision Note: I independently interviewed and examined the patient and verified the maciel history and physical, reviewed labs and image studies and agree with resident Dr. Smallwood findings and care plan. Subjective Patient seen at the bedside this morning. Patient is mostly non-verbal and states only singular words. Today he was not talkative and only was able to get 2 "no's" out of the questions I asked him today. The patient was told what the plan is to remind him that he is going to go to a facility to get his strength back whenever we are able to find a place for him. Otherwise patient had no overnight events. Nurse indicated he ate some food and drank most of his protein shake which has been his baseline for the past couple of days. Review of Systems Review of Systems: Unable to attain ROS as pt is not answering questions this morning. He did say not when asked if he is in pain. Physical Exam Constitutional: WD/WN, vitals as above + cachectic and + frail appearing Eyes: PERRL, conjunctivae normal, anicteric sclerae Respiratory: normal respiratory effort, lungs clear to auscultation Cardiovascular: RRR, no murmur, no edema Gastrointestinal (Abdomen): normal bowel sounds, soft, nontender, no hepatosplenomegaly Results & Data Results & [facility] ([facility]) Vital Signs (Past 12 Hours) Vital Signs Temp Pulse Resp BP Pulse Ox 03/24/21 16:15 36.5 C 83 16 122/71 93 03/24/21 06:07 36.7 C 91 H 17 124/63 95
[2021-03-24] MEDS: TAMSULOSIN HCL 0.4 MG CAP PO SCH (21:03)
[2021-03-25] MEDS: ENOXAPARIN INJ 30 MG/0.3 ML SYR SQ SCH (08:25)
[2021-03-25] MEDS: DUTASTERIDE PO SCH (08:25)
[2021-03-25] MEDS: PANTOprazole 40 MG in SYRINGE 0 ML IV SCH ×2 (08:26→20:27)
[2021-03-25] MEDS: PIMOZIDE 1 MG PO SCH ×2 (08:26→20:25)
[2021-03-25] MEDS: PIMOZIDE 2 MG TABLET PO SCH ×2 (08:27→20:25)
[2021-03-25] MEDS: VENLAFAXINE HCL XR 150 MG CAPXR PO SCH (08:28)
[2021-03-25] MEDS: SENNA 8.6 MG TAB PO SCH (08:29)
[2021-03-25] MEDS ORDERED: DEXTROSE 10% 1,000 ML IV PRN (10:34)
[2021-03-25] MEDS ORDERED: TPN/PPN CONSULT PHARMACY STA (10:34)
--- NOTE | 2021-03-25 10:45 | Hospitalist Progress Note ---
Date of Service March 25, 2021 Assessment & Plan (1) Acute dehydration: (2) Weakness: (3) Acidosis, lactic: (4) Tourettes syndrome: (5) Debility: (6) Abnormal LFTs: Plan: (1) Acute dehydration: (2) Weakness: (3) Acidosis, lactic: (4) Tourettes syndrome: (5) Debility: (6) Abnormal LFTs: Plan: 60 year old male past medical history of cognitive impairment, Tourettes, and constipation admitted for dehydration and failure to thrive. Failure to thrive/Weakness: -Head CT negative, CT abd/pelv large amount of stool, CT chest with evidence of possible viral pneumonia. Video swallow without abnormalities. Colonoscopy from 6 weeks ago showed rectal mass. Calorie intake 60% of minimum required daily. -Failure to thrive differential: Viral pneumonia induced vs esophageal strictures preventing PO intake vs constipation + rectal mass. -Per Dr. Izquierdo patient's rectal mass, if cancer, not contributing to 100% to the patient's decline. As per GI, no current emergent need for scope, urgent outpatient testing recommended. As per Dr. Rudd, difficult to schedule EGD outpatient with him. Case management trying to schedule as soon as possible. -Mass still present after aggressive bowel movement regimen. Likely rectal mass and no fecal matter. -Patient will need to follow up with colorectal surgeon at this point for the mass most likely causing his decreased appetite and failure to thrive. -Awaiting placement at SNF for PT/OT that his alf is unable to provide. -Given pt's worsening FTT and continued poor oral intake, initiated PPN today to improve caloric intake. [facility] also consulted. Acute dehydration: -resolved with hydration and PO intake. Rectal mass: -Follow for rectal mass biopsy results. -Case management scheduling him for outpatient visit with Dr. Garcia (colorectal surgeon). Constipation: -Noted on CT -daily bowel movement in the hospital - likely overflow. -Mass still present on KUB, most likely mostly cancerous mass based on sigmoidoscopy report. -D/C'ed aggressive constipation regimen. Past Hx Esophagitis: -As per Dr. Rudd, EGD from 2006 showed esophagitis. -Protonix BiD. Acidosis, lactic: Elevated lactate on arrival of 8.1 which improved with IVF. Repeat 2.2. Possibly secondary to dehydration, patient hypotensive on arrival which resolved with IVF x 2L -Blood cultures from ED negative for any growth. UA is unremarkable. Skin intact. CXR with no infiltrates -Likely from hypovolemic hypoperfusion Tourettes syndrome: -Continue Pimozide Abnormal LFTs: -Patient with raised LFT's on admission. Most likely due to dehydration hypovolemia. -LFT's trending downward DVT Ppx - Lovenox 30 Code - Full per discussion with [facility] Anticipate d/c to SNF Admission and Anticipated Discharge Date Admission Date: March 08, 2021 Supervising Physician Co-Signing Physician Notes I personally examined the patient and verified all maciel points of history and exam, discussed case, and agree with decision making with Dr Joiner. No meaningful HPI review of systems obtainable. Patient does speak nonsensically, but with a conversational lele. Vitals noted, still cachectic. No apparent distress. HEENT normocephalic atraumatic mucous membranes are moist. Breathing unlabored no accessory muscle use good effort. Skin shows no rashes no pallor or icterus. Failure to thrive with acute severe protein calorie malnutritionroot cause still not entirely clear, would prefer to have EGD done in the near future, although it may all be from colon mass, and what amounts to be functional partial chronic obstruction from the mass and feces. I fear the patient failing to improve with the pace of care that would occur in an outpatient setting, given that he is continuing to waste away even here in a supervised setting. In that respect, to ensure that he has colorectal evaluation before he is too malnourished to even be considered as a surgical candidate, the resident team facilitated transfer to [facility] for colorectal evaluation. Given that he is not keeping up with his calorie goals p.o., IV nutrition has been startedfor now PPN, given that he is taking enough p.o. calories to make probably 60 to 70% of his calorie goals, and the PPN can fill in the gap, but TPN would not be unreasonable as well given his acute malnutrition. For now follow closely. Follow electrolytes/follow for any evidence of refeeding, but given that he has not been strict n.p.o. are in a strict/total calorie deficitI doubt this will occur. Otherwise as above Subjective Pt was not in any acute distress but largely incoherent, unable to comprehend questions and minimal verbalization. Was laying in bed but seemed aware of examiner's presence. Was slightly more coherent during AM rounds with hospitalist team, asked questions about his disposition planning. Review of Systems Review of Systems: Unable to elicit ROS Physical Exam Constitutional: WD/WN, vitals as above + cachectic and + frail appearing Eyes: PERRL, conjunctivae normal, anicteric sclerae Respiratory: normal respiratory effort, lungs clear to auscultation Cardiovascular: RRR, no murmur, no edema Gastrointestinal (Abdomen): normal bowel sounds, soft, nontender, no hepatosplenomegaly Results & Data Results & Data ([facility]) Vital Signs (Past 12 Hours) Vital Signs Temp Pulse Resp BP Pulse Ox 03/25/21 07:34 36.8 C 84 14 96/57 L 95 Resident Activity Tracking Resident Involvement: Resident Care Provided Care Provided: Adult Hospital Medicine
[2021-03-25 13:20] LABS: BUN Creatinine Ratio 12.7 (10-20); Calcium 8.5 mg/dl (8.5-10.1); Creatinine Clr Calc Pharmacy 66.3 ml/min; Est GFR (African American) 112.7 ml/min; Est GFR (Non-African American) 97.3 ml/min; Magnesium 2.1 mg/dl (1.8-2.4); Potassium 4.5 mmol/L (3.5-5.1)
[2021-03-25 13:32] LABS: Bilirubin,Total 0.5 mg/dl (0.2-1); Phosphorus 3.3 mg/dl (2.5-4.9)
[2021-03-25] MEDS ORDERED: TPN/PPN CONSULT PHARMACY PRN (13:44)
[2021-03-25] MEDS ORDERED: Custom Peripheral Pn 2,000 ML in TPN BAG 0 ML IV SCH (16:00)
--- NOTE | 2021-03-25 16:01 | Billing Data ---
Date of Service March 25, 2021 Coding Level of Care Code 64825 Subseq Hosp Care Lvl 3
[2021-03-25] MEDS: TAMSULOSIN HCL 0.4 MG CAP PO SCH (20:27)
[2021-03-26 07:10] LABS: BUN Creatinine Ratio 14.6 (10-20); Calcium 8.5 mg/dl (8.5-10.1); Creatinine Clr Calc Pharmacy 72.5 ml/min; Potassium 4.4 mmol/L (3.5-5.1)
[2021-03-26 07:52] LABS: Magnesium 2.1 mg/dl (1.8-2.4); Phosphorus 3.3 mg/dl (2.5-4.9)
[2021-03-26] MEDS: ENOXAPARIN INJ 30 MG/0.3 ML SYR SQ SCH (09:29)
[2021-03-26] MEDS: VENLAFAXINE HCL XR 150 MG CAPXR PO SCH (09:30)
[2021-03-26] MEDS: PIMOZIDE 1 MG PO SCH (09:31)
[2021-03-26] MEDS: PIMOZIDE 2 MG TABLET PO SCH (09:31)
[2021-03-26] MEDS: DUTASTERIDE PO SCH (09:32)
[2021-03-26] MEDS: SENNA 8.6 MG TAB PO SCH (09:33)
[2021-03-26] MEDS: PANTOprazole 40 MG in SYRINGE 0 ML IV SCH (09:33)
--- NOTE | 2021-03-26 10:42 | Discharge Summary ---
Date of Service March 26, 2021 Admission HPI Per Admitting Provider Nadeem Tripp is a 60yo male presenting from his correction with dehydration and failure to thrive. History obtained through chart review, discussion with ER staff and caregiver at bedside. Patient has been deteriorating over the last several weeks. He has not been eating or drinking much. He has become more weak, requires 2-4 person assist to get him out of bed. Seen recently admitted to [facility] for hypernatremia as well as dehydration and weakness. Treated with IVF and sent home. Caregiver reports patient has been leaning to the right, possibly had a right eye droop Is largely non-communicative but is able to answer "yes" or "no" Has an occasional cough at night otherwise no report of fever, chills, malaise, chest pain, palpitations, abdominal pain, nausea, vomiting diarrhea or constipa tion. Received Flu shot and Covid booster appx 2 weeks ago Hypotensive upon arrival with triage BP of 72/47, HR of 108. He was administered IVF x 2 liters with improvement in hemodynamics. BP upon my encounter 111/62 ER Course: Cefepime 2gm, NSS Admission Exam Per Admitting Provider General: chronically ill appearing male patient, NAD, able to answer yes or no questions and follow some commands Skin: warm, dry, intact, scattered bruising - right shoulder, right forearm HEENT: NC/AT, PERRL, EOMI, anicteric sclera, conjunctiva without injection, external ear normal to inspection and nontender, nares patent, DRY mucus membranes, dentition intact, no oropharyngeal lesions, neck supple, trachea midline, no LAD, no thyromegaly, no JVD Heart: +S1/S2, regular, tachycardic, 3/6 ALFREDO across precordium, no rubs/gallops, pectus carinatum Lungs: equal air entry bilaterally, no rales/rhonchi/wheezes Abd: +BS, soft, NT/ND, no masses/organomegaly/ascites Ext: warm, 2+ pulses in UE/LE bilaterally, no clubbing/cyanosis or edema Neuro: patient opens eyes to name, moves all extremities with generalized weakness, no focal findings Principal Diagnosis Failure to thrive with colonic mass Discharge Exam Constitutional WD/WN, vitals as above + cachectic and + frail appearing Eyes PERRL, conjunctivae normal, anicteric sclerae Respiratory normal respiratory effort, lungs clear to auscultation Cardiovascular RRR, no murmur, no edema Gastrointestinal (Abdomen) normal bowel sounds, soft, nontender, no hepatosplenomegaly Discharge Data Allergies Allergy/AdvReac Type Severity Reaction Status Date / Time aspirin Allergy Unknown ON Verified 03/08/21 21:47 [place] [facility] hepatitis B virus vaccine Allergy Unknown ON Verified 03/08/21 21:47 [place] [facility] peanut Allergy Unknown ON Verified 03/08/21 21:47 [place] [facility] peas Allergy Unknown ON Verified 03/08/21 21:47 [place] [facility] strawberry Allergy Unknown ON Verified 03/08/21 21:47 [place] [facility] tree nut Allergy Unknown ON Verified 03/08/21 21:47 [place] [facility] watermelon Allergy Unknown ON Verified 03/08/21 21:47 [place] [facility] Consultations 03/08/21 22:31 ED Decision to Admit Stat 03/12/21 15:16 Consult Gastroenterology Routine 03/12/21 19:12 Consult Health Information Management Routine 03/13/21 17:17 Consult Health Information Management Routine Ordered Studies 03/08/21 21:02 CT head/brain wo con Stat 03/09/21 00:00 US liver Routine 03/12/21 08:46 FL video swallow Routine 03/13/21 08:42 CT abd pelvis oral and IV con Routine CT chest diagnostic wo con Routine 03/19/21 11:06 MR brain wo con Routine Hospital Course (1) Acute dehydration: (2) Weakness: (3) Acidosis, lactic: (4) Tourettes syndrome: (5) Debility: (6) Abnormal LFTs: 60 year old male past medical history of cognitive impairment, Tourettes, and constipation admitted for dehydration and failure to thrive. Hospitalized from 03/08 to 03/26 with ground transfer to [place] for colorectal surgery evaluation. Failure to thrive/Weakness: -Head CT negative, CT abd/pelv large amount of stool, CT chest with evidence of possible viral pneumonia. Video swallow without abnormalities. Colonoscopy from 6 weeks ago showed rectal mass. Calorie intake 60% of minimum required daily. -Failure to thrive differential: Viral pneumonia induced vs esophageal strictures preventing PO intake vs constipation + rectal mass. -Per Dr. Izquierdo patient's rectal mass, if cancer, not contributing to 100% to the patient's decline. As per GI, no current emergent need for scope, urgent outpatient testing recommended. As per Dr. Rudd, difficult to schedule EGD in outpatient setting. Would possibly benefit from EGD soon but will be further evaluated at [facility]. -Mass still present after aggressive bowel movement regimen. Likely rectal mass and no fecal matter. -Patient will need to follow up with colorectal surgeon at this point for the mass most likely causing his decreased appetite and failure to thrive. -Given pt's worsening FTT and continued poor oral intake, PPN initiated to improve caloric intake. Buffer Copper also consulted. -Pt accepted for transfer to [place] for colorectal surgery evaluation, to be transported today 03/26. Acute dehydration: -resolved with hydration and PO intake. Rectal mass: -Follow for rectal mass biopsy results. -Case management scheduling him for outpatient visit with Dr. Garcia (colorectal surgeon). Constipation: -Noted on CT -daily bowel movement in the hospital - likely overflow. -Mass still present on KUB, most likely mostly cancerous mass based on sigmoidoscopy report. -D/C'ed aggressive constipation regimen. Past Hx Esophagitis: -As per Dr. Rudd, EGD from 2006 showed esophagitis. -Protonix BiD. Acidosis, lactic: Elevated lactate on arrival of 8.1 which improved with IVF. Repeat 2.2. Possibly secondary to dehydration, patient hypotensive on arrival which resolved with IVF x 2L -Blood cultures from ED negative for any growth. UA is unremarkable. Skin intact. CXR with no infiltrates -Likely from hypovolemic hypoperfusion Tourettes syndrome: -Continue Pimozide Abnormal LFTs: -Patient with raised LFT's on admission. Most likely due to dehydration hypovolemia. -LFT's trending downward DVT Ppx - Lovenox 30 Code - Full per discussion with [facility] Anticipate d/c to SNF Total Time Total Time Spent Total Time Spent (In Minutes): <30 Discharge Plan Discharge Items Patient Disposition: Transfer Acute Care Hospital Reason For Visit: ELEVATED LACATE, FAILURE TO THRIVE Discharge Diagnosis: Rectal mass Activity: Per Instructions section Non-emergency contact: Primary Care Provider Call non-emergency contact if: your symptoms worsen, your pain is not controlled, your pain is worsening and you have a fever Follow-up/Referrals: Jared Ch [Primary Care Provider] - Diet: Regular Addtl Attending Provider Instructions: 60 year old male past medical history of cognitive impairment, Tourettes, and constipation admitted for dehydration and failure to thrive. Failure to thrive/Weakness: -Head CT negative, CT abd/pelv large amount of stool, CT chest with evidence of possible viral pneumonia. Video swallow without abnormalities. Colonoscopy from 6 weeks ago showed rectal mass. Calorie intake 60% of minimum required daily. -Failure to thrive differential: Viral pneumonia induced vs esophageal strictures preventing PO intake vs constipation + rectal mass. -Per Dr. Izquierdo patient's rectal mass, if cancer, not contributing to 100% to the patient's decline. As per GI, no current emergent need for scope, urgent outpatient testing recommended. As per Dr. Rudd, difficult to schedule EGD outpatient with him. Case management trying to schedule as soon as possible. -Mass still present after aggressive bowel movement regimen. Likely rectal mass and no fecal matter. -Patient will need to follow up with colorectal surgeon at this point for the mass most likely causing his decreased appetite and failure to thrive. -Awaiting placement at SNF for PT/OT that his correction is unable to provide. -Given pt's worsening FTT and continued poor oral intake, initiated PPN to improve caloric intake. Buffer Copper also consulted. Accepted for transfer to [facility], ground transport today 03/[address] Mark Gutierrez, to receive colorectal surgery evaluation. Acute dehydration: -resolved with hydration and PO intake. Rectal mass: -Follow for rectal mass biopsy results. -Case management scheduling him for outpatient visit with Dr. Garcia (colorectal surgeon). Constipation: -Noted on CT -daily bowel movement in the hospital - likely overflow. -Mass still present on KUB, most likely mostly cancerous mass based on sigmoidoscopy report. -D/C'ed aggressive constipation regimen. Past Hx Esophagitis: -As per Dr. Rudd, EGD from 2006 showed esophagitis. -Protonix BiD. Acidosis, lactic: Elevated lactate on arrival of 8.1 which improved with IVF. Repeat 2.2. Possibly secondary to dehydration, patient hypotensive on arrival which resolved with IVF x 2L -Blood cultures from ED negative for any growth. UA is unremarkable. Skin intact. CXR with no infiltrates -Likely from hypovolemic hypoperfusion Tourettes syndrome: -Continue Pimozide Abnormal LFTs: -Patient with raised LFT's on admission. Most likely due to dehydration hypovolemia. -LFT's trending downward Pending Studies at Discharge: No Stand-Alone Forms: My [facility] Skilled Items Patient informed of condition?: Yes DNR: No Discharge Level of Care: Other Communicable Disease: No Discharge Prognosis: Stable Lines: None Urinary Catheter: No Medications and DC Order Prescriptions: Continued sennosides [Syl-roxie] 8.6 mg tablet 8.6 mg PO QAM RF: 0 montelukast 10 mg tablet 10 mg PO QAM RF: 0 albuterol sulfate [Ventolin HFA] 90 mcg/actuation HFA aerosol inhaler 2 puffs INH Q6H PRN (Reason: Shortness Of Breath) RF: 0 epinephrine 0.3 mg/0.3 mL auto-injector 0.3 mg IM DIRECTED PRN (Reason: Allergic Reaction) RF: 0 clotrimazole [Jock Itch (clotrimazole)] 1 % cream 1 appln TOP BID PRN (Reason: NEEDED) RF: 0 pimozide 2 mg tablet 2 mg PO BID RF: 0 dutasteride [Avodart] 0.5 mg capsule 0.5 mg PO DAILY Qty: 90 RF: 3 loperamide 2 mg Tablet 2 mg PO DIRECTED MDD 4 TABS/DAY--NO MORE THAN 2 DAY PRN (Reason: LOOSE STOOLS) RF: 0 venlafaxine 150 mg capsule,extended release 24hr 150 mg PO QAM RF: 0 dextromethorphan-guaifenesin 10-100 mg/5 mL Syrup 10 ml PO Q4H PRN (Reason: COUGH/CHEST CONGESTION) RF: 0 acetaminophen 500 mg Tablet 500 mg PO Q4H PRN (Reason: FEVER>99 DEGREES/PAIN) RF: 0 phenol-phenolate sodium Aerosol,[place] 5 spray PO Q2H PRN (Reason: Sore Throat) RF: 0 pimozide 1 mg Tablet 1 mg PO BID RF: 0 ibuprofen 200 mg Tablet 200 mg PO Q4H PRN (Reason: FEVER/PAIN) RF: 0 alum-mag hydroxide-simeth [Antacid] 200-200-20 mg/5 mL Suspension 10 ml PO PCHS PRN (Reason: INDIGESTION BETWEEN MEALS) RF: 0 Coricidin HBP Cold and Flu 2-325 mg Tablet 2 tab PO Q4H PRN (Reason: BODY ACHES/CONGESTION) RF: 0 tamsulosin 0.4 mg capsule 0.4 mg PO HS RF: 0 nitrofurantoin macrocrystal 100 mg capsule 100 mg PO QAM RF: 0 Discharge Orders: Discharge Order (Routine); Ordered 03/26/21 Ordered By: Viviane Joiner Admission Data Admit Date/Time: 03/08/21 23:26 Attending Provider: Hollis Palacios Admit Provider: Dorita Nichols Primary Care Provider: Jared Ch Other Providers: Dorita Nichols ; Marlon Villalba Other Interventions: Discharge Summary Assessment (RN) Last Done: 03/26/21 10:30 Supervising Physician Co-Signing Physician Notes I personally examined the patient and verified all maciel points of history and exam, discussed case, and agree with decision making with Dr Joiner. still no meaningful HPI review of systems obtainable. Patient does speak nonsensically, but with a conversational lele. Vitals noted, still cachectic. No apparent distress. HEENT normocephalic atraumatic mucous membranes are moist. Breathing unlabored no accessory muscle use good effort. Skin shows no rashes no pallor or icterus. Failure to thrive with acute severe protein calorie malnutritionroot cause still not entirely clear, would prefer to have EGD done in the near future, although it may all be from colon mass, and what amounts to be functional partial chronic obstruction from the mass and feces. I fear the patient failing to improve with the pace of care that would occur in an outpatient setting, given that he is continuing to waste away even here in a supervised setting. In that respect, to ensure that he has colorectal evaluation before he is too malnourished to even be considered as a surgical candidate, the resident team facilitated transfer to [facility] for colorectal evaluation, this will occur today. Given that he is not keeping up with his calorie goals p.o., IV nutrition has been startedfor now PPN, given that he is taking enough p.o. calories to make probably 60 to 70% of his calorie goals, and the PPN can fill in the gap, but TPN would not be unreasonable as well given his acute malnutrition (PPN started due to appropriate IV access for this but not TPN at this time). continue to follow closely. Follow electrolytes/follow for any evidence of refeeding, but given that he has not been strict n.p.o. are in a strict/total calorie deficitI doubt this will occur. (K was fine today, and clinically he appeared stable) ---for transfer today Otherwise as above Resident Activity Tracking Resident Involvement: Resident Care Provided Care Provided: Adult [facility]
--- NOTE | 2021-03-26 13:52 | Billing Data ---
Date of Service March 26, 2021 Coding Level of Care Code D/C DAY MANAGEMENT <30 MINS
[2021-03-26] MEDS ORDERED: Custom Peripheral Pn 2,000 ML in TPN BAG 0 ML IV SCH (16:00)
--- NOTE | 2021-03-31 16:55 | Communication Note ---
Date of Service: March 31, [address] call from [address] Sherman at [facility], asking if we could accept the patient and return transfernow that he is basically just waiting on SNF placement, and they felt this would be better served closer to home. Patient had EGDgastritis found, he is on a PPI, H. pylori pending. They repeated colonoscopy, had 5 cm nonobstructing rectal mass. Colorectal did not want to do surgery until he was more nutritionally optimized. They did not have any other clear reason for his failure to thrive, so right now my suspicions would have to be just food aversion from the gastritis, as well as general GI discomfort from his rather significant constipation prior to the bowel prep. We will accept him back to [facility], ongoing PPI, ongoing bowel regimen, and aggressive nutritional support. Case discussed with resident physician who had been caring for him during this week, as same physicians on the coming week and will likely assume his care. Case also discussed with admitting physician in case there are any questions, although highly doubt the patient will arrive today according to nursing fabrication and assembly supervisor.
== END 2021-03-26 11:15 | disposition short-term general hospital (02) | DRG 640 ==
LOC: ED 20:22 → SUATTDRO 23:26 → 3N 23:26 → 3E 03-22 15:38